=== PATIENT | male | born 1935 | race Caucasian/White ===

== ENCOUNTER 2022-11-07 09:00 | Emergency (ER) | payer OTHER ==
--- OUTSIDE RECORDS SUMMARY | 2022-11-07 09:07 | XMS REPORT | Continuity of Care Document ---
:1935 Author Organization [facility] Address [address] [place] [address] [place] [id number] Care Team Providers Name Role Phone Amanda Roblero APRN Primary Care Physician JOE TABARES Attending Clinician Unavailable KORY AGUILERA Attending Clinician Unavailable ARIANNA MESA Attending Clinician Unavailable AMANDA ROBLERO Attending Clinician Unavailable MARCUS VERDUZCO Attending Clinician Unavailable SHAZIA AMAYA Attending Clinician Unavailable Payal Novoa MD Attending Clinician Jamari Aguilar MD Attending Clinician Meghan Luis Attending Clinician [email or web address] Attending Clinician Unavailable Clayton Bliss V Attending Clinician Unavailable Surekha Fam LCSW Attending Clinician Unavailable Katerin Casey RN Attending Clinician Unavailable ERNESTO SAHA Attending Clinician Unavailable Vaishali Pascual LVN Attending Clinician Unavailable Mao Chamorro Attending Clinician [phone] [email or web address] Admitting Clinician Unavailable Adrianna Blissar David Admitting Clinician Unavailable Payers Payer Name Policy Type Policy Number Effective Date Expiration Date S ource GENERIC INTERFACED [id number] 2021 2021 [facility] PLAN 00:00:00 00:00:00 GENERIC MEDICARE [id number] 1996 MANAGED CARE 00:00:00 MEDICARE B: [id number] 1999 KRISTIE HERNANDEZ - 00:00:[address] 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 Continue memantine 10mg BID and donepezil 10mg Every day Discussed the need for consisten cy with the pt Try in the future to keep him with one dtr for a longer period rather than switching every 2 weeks Hallucinat Hallucinat Disease Active Last U T ions, ions, 17 [facility] visual visual 00:00: t & Plan: 00 Formattin g of this note might be different from the original. MRI ordered suspect stroke or LBD Essential Essential Disease Active Last [facility] hypertensi hypertensi 17 [facility] on on 00:00: t & Plan: 00 Formattin g of this note might be different from the original. 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 insulin insulin No longer on medicatio ns Cleared by endocrino delfin Hyperlipid Hyperlipid Disease Active Last U T emia emia 02-10 [facility] 00:00: t & Plan: 00 Formattin g of this note might be different from the original. Lipid panel Disorienta Disorienta Disease Active Last U T tion tion 02-10 [facility] 00:00: t & Plan: 00 Formattin g of this note might be different from the original. Occurred on a camping trip oriented today dtr will try to move him to where she lives He has a tracker they are keeping on his car keys Vitamin D Vitamin D Disease [facility] t & Plan: 00 Formattin g of this note might be different from the original. F/u on low vit D Pt has vit D deficienc y Will replace vit D if low Cardiac Cardiac Disease Active Last [facility] 00:00: t & Plan: 00 Formattin g of this note might be different from the original. 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 atrial atrial 00:00: t & Plan: contractio contractio 00 Formattin n) n) g of this note might be different from the original. Pt had an irregular rhythm EKG ordered and showed PACs Allergies, Adverse Reactions, Alerts Allergy Allergy Status Severity Reaction(s) Onset Inactive Treating Comm ents Source Name Type Date Date Clinician No Known DA Active [facility] Allergie 3-07 Seltzer s 00:00: Region 00 [facility] Social History Social Habit Start Date Stop Date Quantity Comments Source History of Current smoker [facility] tobacco use History [facility] Alcohol Frequency History [facility] Alcohol Std Drinks History [facility] Alcohol Binge Exposure to 2022-07-23 2022-08-02 Not sure [facility] SARS-CoV-2 00:00:00 10:09:00 (event) Cigarette 2022-02-02 2022-02-02 [facility] pack-years 00:00:00 00:00:00 Alcohol intake 2022-02-02 2022-02-02 Current drinker of [facility] 00:00:00 00:00:00 alcohol (finding) Tobacco use and 2022-02-02 2022-02-02 Former smokeless [facility] exposure 00:00:00 00:00:00 tobacco user Tobacco Comment 2022-02-02 2022-02-02 used till his 60s [facility] 00:00:00 00:00:00 Alcohol Comment 2021-02-10 2021-02-10 infrequently [facility] 00:00:00 00:00:00 Sex Ass[birth year] At [birth year] [facility] 00:00:00 00:00:00 Hospital Smoking Status Start Date Stop Date Source Tobacco smoking consumption [facility] unknown Ex-smoker 2022-02-02 00:00:00 2022-02-02 00:00:00 [facility] Medications Ordered Filled Start Stop Current Ordering Indication Dosage Frequency Signature Comments Components Source Medication Medication Date Date Medication? Clinician (SIG) Name Name cyanocobala Yes 1000ug QD Take 1,000 UT min 2-17 mcg by Health (Vitamin 14:07: mouth 1 B-12) 1000 39 (one) time MCG tablet each day. cholecalcif Yes 2000U Take 2,000 UT michael 2-17 Units by Health (Vitamin 14:07: mouth. D-3) 50 MCG 39 (2000 UT) tablet cyanocobala Yes 1000ug QD Take 1,000 UT min 2-17 mcg by Health (Vitamin 14:07: mouth 1 B-12) 1000 39 (one) time MCG tablet each day. cholecalcif Yes 2000U Take 2,000 UT michael 2-17 Units by Health (Vitamin 14:07: mouth. D-3) 50 MCG 39 (2000 UT) tablet cyanocobala 2021-08 Yes 1000ug QD Take 1,000 UT min 2-07 mcg by Health (Vitamin 10:45: mouth 1 B-12) 1000 07 (one) time MCG tablet each day. cholecalcif 2021-08 Yes 2000U Take 2,000 UT michael 2-07 Units by Health (Vitamin 10:45: mouth. D-3) 50 MCG 04 (1999) tablet atropine 2021-08 Yes [id number] Apply UT % 2-07 sublingual Health ophthalmic 00:00: 1-2 drops solution 00 every two -four hours prn. For excess runny nose saliva atropine 2021-08 Yes [id number] Apply UT % 2-07 sublingual Health ophthalmic 00:00: 1-2 drops solution 00 every two -four hours prn. For excess runny nose saliva atropine 2021-08 Yes [id number] Apply UT % 2-07 sublingual Health ophthalmic 00:00: 1-2 drops solution 00 every two -four hours prn. For excess runny nose saliva memantine 2021-08- No [id number] 10mg Q.5D Take 1 U T (Namenda) 10-03 tablet (10 Hea lth 10 MG 00:00: 05:59 mg total) tablet 00 :00 by mouth in the morning and 1 tablet (10 mg total) in the evening. donepezil 2021-08- No [id number] 10mg Take 1 U T (Aricept) 10-03 tablet (10 Hea lth 10 MG 00:00: 05:59 mg total) tablet 00 :00 by mouth 1 (one) time each day in the morning. memantine 2021-08- No [id number] 10mg Q.5D Take 1 U T (Namenda) 10-03 tablet (10 Hea lth 10 MG 00:00: 05:59 mg total) tablet 00 :00 by mouth in the morning and 1 tablet (10 mg total) in the evening. donepezil 2021-08- No [id number] 10mg Take 1 U T (Aricept) 10-03 tablet (10 Hea lth 10 MG 00:00: 05:59 mg total) tablet 00 :00 by mouth 1 (one) time each day in the morning. memantine 2021-08- No [id number] 10mg Q.5D Take 1 U T (Namenda) 10-03 tablet (10 Hea lth 10 MG 00:00: 05:59 mg total) tablet 00 :00 by mouth in the morning and 1 tablet (10 mg total) in the evening. donepezil 2021-08- No [id number] 10mg Take 1 U T (Aricept) 10-03 tablet (10 Hea lth 10 MG 00:00: 05:59 mg total) tablet 00 :00 by mouth 1 (one) time each day in the morning. donepezil 2021-08- No [id number] 10mg Take 1 U T (Aricept) 09-27 tablet (10 Hea lth 10 MG 00:00: 00:00 mg total) tablet 00 :00 by mouth every night. cyanocobala 2021-08 Yes 1000ug QD Take 1,000 UT min 0-21 mcg by Health (Vitamin 15:16: mouth 1 B-12) 1000 20 (one) time MCG tablet each day. cholecalcif 2021-08 Yes 2000U Take 2,000 UT michael 0-21 Units by Health (Vitamin 15:16: mouth. D-3) 50 MCG 20 (2000 UT) tablet donepezil 2022- No [id number] 10mg Take 1 U T (Aricept) 05-04 tablet (10 Hea lth 10 MG 00:00: 04:59 mg total) tablet 00 :00 by mouth every night. gemfibrozil 0 Yes [id number] 600mg Q.5D Take 1 UT (Lopid) 600 7-27 tablet Health MG tablet 00:00: (600 mg 00 total) by mouth in the morning and 1 tablet (600 mg total) in the evening. atorvastati Yes [id number] 10mg QD Take 1 UT n (Lipitor) 7-27 tablet (10 He alth 10 MG 00:00: mg total) tablet 00 by mouth 1 (one) time each day. lisinopril 0 Yes [id number] 20mg Q.5D Take 1 U T 20 MG 7-27 tablet (20 Health tablet 00:00: mg total) 00 by mouth in the morning and 1 tablet (20 mg total) in the evening. gemfibrozil 0 Yes [id number] 600mg Q.5D Take 1 UT (Lopid) 600 7-27 tablet Health MG tablet 00:00: (600 mg 00 total) by mouth in the morning and 1 tablet (600 mg total) in the evening. atorvastati 2022-0 Yes [id number] 10mg QD Take 1 UT n (Lipitor) 7-27 tablet (10 He alth 10 MG 00:00: mg total) tablet 00 by mouth 1 (one) time each day. lisinopril 2022-0 Yes [id number] 20mg Q.5D Take 1 U T 20 MG 7-27 tablet (20 Health tablet 00:00: mg total) 00 by mouth in the morning and 1 tablet (20 mg total) in the evening. gemfibrozil 2022-0 Yes [id number] 600mg Q.5D Take 1 UT (Lopid) 600 7-27 tablet Health MG tablet 00:00: (600 mg 00 total) by mouth in the morning and 1 tablet (600 mg total) in the evening. atorvastati 2022-0 Yes [id number] 10mg QD Take 1 UT n (Lipitor) 7-27 tablet (10 He alth 10 MG 00:00: mg total) tablet 00 by mouth 1 (one) time each day. lisinopril 2022-0 Yes [id number] 20mg Q.5D Take 1 U T 20 MG 7-27 tablet (20 Health tablet 00:00: mg total) 00 by mouth in the morning and 1 tablet (20 mg total) in the evening. gemfibrozil 2022-0 Yes [id number] 600mg Q.5D Take 1 UT (Lopid) 600 7-27 tablet Health MG tablet 00:00: (600 mg 00 total) by mouth in the morning and 1 tablet (600 mg total) in the evening. atorvastati 2022-0 Yes [id number] 10mg QD Take 1 UT n (Lipitor) 7-27 tablet (10 He alth 10 MG 00:00: mg total) tablet 00 by mouth 1 (one) time each day. lisinopril 2022-0 Yes [id number] 20mg Q.5D Take 1 U T 20 MG 7-27 tablet (20 Health tablet 00:00: mg total) 00 by mouth in the morning and 1 tablet (20 mg total) in the evening. cyanocobala 2022-0 Yes 1000ug QD Take 1,000 UT min 6-09 mcg by Health (Vitamin 08:45: mouth 1 B-12) 1000 10 (one) time MCG tablet each day. cholecalcif 2022-0 Yes 2000U Take 2,000 UT michael 6-09 Units by Health (Vitamin 08:45: mouth. D-3) 50 MCG 10 (1999 UT) tablet cyanocobala 2022-0 Yes 1000ug QD Take 1,000 UT min 6-09 mcg by Health (Vitamin 08:45: mouth 1 B-12) 1000 10 (one) time MCG tablet each day. cholecalcif 2022-0 Yes 2000U Take 2,000 UT michael 6-09 Units by Health (Vitamin 08:45: mouth. D-3) 50 MCG 10 (2000 UT) tablet ipratropium 2022-0 Yes [id number] 2{spray Q.[id number] Administ er UT (Atrovent) 5-05 } [id number] 2 sprays Health 0.06 % 00:00: 3D into each nasal spray 00 nostril 3 (three) times a day for 21 days. ipratropium 2022-0 Yes [id number] 2{spray Q.36611995 Administ er UT (Atrovent) 5-05 } [id number] 2 sprays Health 0.06 % 00:00: 3D into each nasal spray 00 nostril 3 (three) times a day for 21 days. ipratropium 2022-0 Yes [id number] 2{spray Q.[id number] Administ er [facility] (Atrovent) 5-05 } [id number] 2 sprays Health 0.06 % 00:00: 3D into each nasal spray 00 nostril 3 (three) times a day for 21 days. ipratropium 2022-0 Yes [id number] 2{spray Q.26070597 Administ er [facility] (Atrovent) 5-05 } [id number] 2 sprays Health 0.06 % 00:00: 3D into each nasal spray 00 nostril 3 (three) times a day for 21 days. ipratropium 2022-0 Yes [id number] 2{spray Q.[id number] Administ er [facility] (Atrovent) 5-05 } [id number] 2 sprays Health 0.06 % 00:00: 3D into each nasal spray 00 nostril 3 (three) times a day for 21 days. ipratropium 2022-0 Yes [id number] 2{spray Q.[id number] Administ er [facility] (Atrovent) 5-05 } [id number] 2 sprays Health 0.06 % 00:00: 3D into each nasal spray 00 nostril 3 (three) times a day for 21 days. ipratropium 2022-0 Yes [id number] 2{spray Q.[id number] Administ er [facility] (Atrovent) 5-05 } [id number] 2 sprays Health 0.06 % 00:00: 3D into each nasal spray 00 nostril 3 (three) times a day for 21 days. ipratropium 2022-0 Yes [id number] 2{spray Q.[id number] Administ er [facility] (Atrovent) 5-05 } [id number] 2 sprays Health 0.06 % 00:00: 3D into each nasal spray 00 nostril 3 (three) times a day for 21 days. azelastine 2022- No [id number] 1{spray Q.5D Administer [facility] (Astelin) 5-05 05-06 } 1 spray Health 0.1 % nasal 00:00: 04:59 into each spray 00 :00 nostril 2 (two) times a day. Use in each nostril as directed azelastine 2022- No [id number] 1{spray Q.5D Administer [facility] (Astelin) 5-05 05-06 } 1 spray Health 0.1 % nasal 00:00: 04:59 into each spray 00 :00 nostril 2 (two) times a day. Use in each nostril as directed azelastine 2022- No [id number] 1{spray Q.5D Administer [facility] (Astelin) 505 05-06 } 1 spray Health 0.1 % nasal 00:00: 04:59 into each spray 00 :00 nostril 2 (two) times a day. Use in each nostril as directed azelastine 2022- No [id number] 1{spray Q.5D Administer [facility] (Astelin) 5-05 05-06 } 1 spray Health 0.1 % nasal 00:00: 04:59 into each spray 00 :00 nostril 2 (two) times a day. Use in each nostril as directed azelastine 2021-2022- No [id number] 1{spray Q.5D Administer [facility] (Astelin) 5-05 05-06 } 1 spray Health 0.1 % nasal 00:00: 04:59 into each spray 00 :00 nostril 2 (two) times a day. Use in each nostril as directed azelastine 2021-2022- No [id number] 1{spray Q.5D Administer [facility] (Astelin) 5-05 05-06 } 1 spray Health 0.1 % nasal 00:00: 04:59 into each spray 00 :00 nostril 2 (two) times a day. Use in each nostril as directed azelastine 2021-0 2022- No [id number] 1{spray Q.5D Administer [facility] (Astelin) 5-05 05-06 } 1 spray Health 0.1 % nasal 00:00: 04:59 into each spray 00 :00 nostril 2 (two) times a day. Use in each nostril as directed azelastine 2021-2022- No [id number] 1{spray Q.5D Administer [facility] (Astelin) 5-05 05-06 } 1 spray Health 0.1 % nasal 00:00: 04:59 into each spray 00 :00 nostril 2 (two) times a day. Use in each nostril as directed azelastine 2021-2022- No [id number] 1{spray Q.5D Administer [facility] (Astelin) 5-05 05-06 } 1 spray Health 0.1 % nasal 00:00: 04:59 into each spray 00 :00 nostril 2 (two) times a day. Use in each nostril as directed azelastine 2021-0 2022- No [id number] 1{spray Q.5D Administer [facility] (Astelin) 5-05 05-06 } 1 spray Health 0.1 % nasal 00:00: 04:59 into each spray 00 :00 nostril 2 (two) times a day. Use in each nostril as directed azelastine 2021-0 2022- No [id number] 1{spray Q.5D Administer [facility] (Astelin) 5-05 05-06 } 1 spray Health 0.1 % nasal 00:00: 04:59 into each spray 00 :00 nostril 2 (two) times a day. Use in each nostril as directed ipratropium 2021-0 2021- No [id number] 2{spray Q.[id number] Adminis ter [facility] (Atrovent) 12-29 } [id number] 2 sprays Health 0.06 % 00:00: 04:59 3D into each nasal spray 00 :00 nostril 3 (three) times a day for 21 days. ipratropium 2021-0 2021- No [id number] 2{spray Q.[id number] Adminis ter [facility] (Atrovent) 12-29 } [id number] 2 sprays Health 0.06 % 00:00: 04:59 3D into each nasal spray 00 :00 nostril 3 (three) times a day for 21 days. ipratropium 2021-0 2021- No [id number] 2{spray Q.[id number] Adminis ter [facility] (Atrovent) 12-29 } [id number] 2 sprays Health 0.06 % 00:00: 04:59 3D into each nasal spray 00 :00 nostril 3 (three) times a day for 21 days. azelastine 2021- No [id number] 1{spray Q.5D Administer UT (Astelin) 12-16 } 1 spray Health 0.1 % nasal 00:00: 00:00 into each spray 00 :00 nostril 2 (two) times a day. Use in each nostril as directed cyanocobala 2021-0 Yes 1000ug QD Take 1,000 UT min 4-13 mcg by Health (Vitamin 13:04: mouth 1 B-12) 1000 11 (one) time MCG tablet each day. cholecalcif 2021-0 Yes 2000U Take 2,000 UT michael 4-13 Units by Health (Vitamin 13:04: mouth. D-3) 50 MCG 11 (1999 UT) tablet cyanocobala 2021-0 Yes 1000ug QD Take 1,000 UT min 4-13 mcg by Health (Vitamin 13:04: mouth 1 B-12) 1000 11 (one) time MCG tablet each day. cholecalcif 2022-0 Yes 2000U Take 2,000 UT michael 4-13 Units by Health (Vitamin 13:04: mouth. D-3) 50 MCG 11 (2000 UT) tablet cyanocobala 2022-0 Yes 1000ug QD Take 1,000 UT min 4-13 mcg by Health (Vitamin 13:04: mouth 1 B-12) 1000 11 (one) time MCG tablet each day. cholecalcif 2022-0 Yes 2000U Take 2,000 UT michael 4-13 Units by Health (Vitamin 13:04: mouth. D-3) 50 MCG 11 (2000 UT) tablet cyanocobala 2022-0 Yes 1000ug QD Take 1,000 UT min 4-13 mcg by Health (Vitamin 13:04: mouth 1 B-12) 1000 11 (one) time MCG tablet each day. cholecalcif 2022-0 Yes 2000U Take 2,000 UT michael 4-13 Units by Health (Vitamin 13:04: mouth. D-3) 50 MCG 11 (2000 UT) tablet cyanocobala 2022-0 Yes 1000ug QD Take 1,000 UT min 4-13 mcg by Health (Vitamin 13:04: mouth 1 B-12) 1000 11 (one) time MCG tablet each day. cholecalcif 2022-0 Yes 2000U Take 2,000 UT michael 4-13 Units by Health (Vitamin 13:04: mouth. D-3) 50 MCG 11 (2000 UT) tablet cyanocobala 2-0 Yes 1000ug QD Take 1,000 UT min 4-13 mcg by Health (Vitamin 13:04: mouth 1 B-12) 1000 11 (one) time MCG tablet each day. cholecalcif 2022-0 Yes 2000U Take 2,000 UT michael 4-13 Units by Health (Vitamin 13:04: mouth. D-3) 50 MCG 11 (2000 UT) tablet cyanocobala 2022-0 Yes 1000ug QD Take 1,000 UT min 4-13 mcg by Health (Vitamin 13:04: mouth 1 B-12) 1000 11 (one) time MCG tablet each day. cholecalcif 2022-0 Yes 2000U Take 2,000 UT michael 4-13 Units by Health (Vitamin 13:04: mouth. D-3) 50 MCG 11 (2000 UT) tablet memantine 2022-0 Yes [id number] 5 mg/day UT (Namenda) 5 4-12 for =1 Health MG tablet 00:00: week; 5 mg 00 twice daily for =1 week; 15 mg/day given 10mg in a.m. and 5mg at bedtime doses for =1 week; then 10 mg twice daily, Normal memantine 2-0 Yes [id number] 5 mg/day UT (Namenda) 5 4-12 for =1 Health MG tablet 00:00: week; 5 mg 00 twice daily for =1 week; 15 mg/day given 10mg in a.m. and 5mg at bedtime doses for =1 week; then 10 mg twice daily, Normal memantine 2-0 Yes [id number] 5 mg/day UT (Namenda) 5 4-12 for =1 Health MG tablet 00:00: week; 5 mg 00 twice daily for =1 week; 15 mg/day given 10mg in a.m. and 5mg at bedtime doses for =1 week; then 10 mg twice daily, Normal memantine 2021-0 Yes [id number] 5 mg/day UT (Namenda) 5 4-12 for =1 Health MG tablet 00:00: week; 5 mg 00 twice daily for =1 week; 15 mg/day given 10mg in a.m. and 5mg at bedtime doses for =1 week; then 10 mg twice daily, Normal memantine 2021-0 Yes [id number] 5 mg/day UT (Namenda) 5 4-12 for =1 Health MG tablet 00:00: week; 5 mg 00 twice daily for =1 week; 15 mg/day given 10mg in a.m. and 5mg at bedtime doses for =1 week; then 10 mg twice daily, Normal memantine 2-0 Yes [id number] 5 mg/day UT (Namenda) 5 4-12 for =1 Health MG tablet 00:00: week; 5 mg 00 twice daily for =1 week; 15 mg/day given 10mg in a.m. and 5mg at bedtime doses for =1 week; then 10 mg twice daily, Normal memantine 2-0 Yes [id number] 5 mg/day UT (Namenda) 5 4-12 for =1 Health MG tablet 00:00: week; 5 mg 00 twice daily for =1 week; 15 mg/day given 10mg in a.m. and 5mg at bedtime doses for =1 week; then 10 mg twice daily, Normal memantine 2021- No [id number] 5 mg/day UT (Namenda) 5 12-06 for =1 Healt h MG tablet 00:00: 00:00 week; 5 mg 00 :00 twice daily for =1 week; 15 mg/day given 10mg in a.m. and 5mg at bedtime doses for =1 week; then 10 mg twice daily, Normal memantine 2022- No [id number] 10mg Q.5D Take 1 U T (Namenda) 11-30 tablet (10 Hea lth 10 MG 00:00: 04:59 mg total) tablet 00 :00 by mouth 2 (two) times a day. memantine 2022- No [id number] 5 mg/day UT (Namenda 11-30 for =1 Health Titration 00:00: 04:59 week; 5 mg Jef) 28 x 5 00 :00 twice MG & 21 x daily for 10 MG =1 week; tablet pack 15 mg/day given in 5 mg and 10 mg doses for =1 week; then 10 mg twice daily memantine 2022- No [id number] 10mg Q.5D Take 1 U T (Namenda) 11-30 tablet (10 Hea lth 10 MG 00:00: 04:59 mg total) tablet 00 :00 by mouth 2 (two) times a day. memantine 2022- No [id number] 5 mg/day UT (Namenda 11-30 for =1 Health Titration 00:00: 04:59 week; 5 mg Jef) 28 x 5 00 :00 twice MG & 21 x daily for 10 MG =1 week; tablet pack 15 mg/day given in 5 mg and 10 mg doses for =1 week; then 10 mg twice daily memantine 2022- No [id number] 10mg Q.5D Take 1 U T (Namenda) 11-30 tablet (10 Hea lth 10 MG 00:00: 04:59 mg total) tablet 00 :00 by mouth 2 (two) times a day. memantine 2022- No [id number] 5 mg/day UT (Namenda 11-30 for =1 Health Titration 00:00: 04:59 week; 5 mg Jef) 28 x 5 00 :00 twice MG & 21 x daily for 10 MG =1 week; tablet pack 15 mg/day given in 5 mg and 10 mg doses for =1 week; then 10 mg twice daily memantine 2022- No [id number] 10mg Q.5D Take 1 U T (Namenda) 11-30 tablet (10 Hea lth 10 MG 00:00: 04:59 mg total) tablet 00 :00 by mouth 2 (two) times a day. memantine 2022- No [id number] 5 mg/day UT (Namenda 11-30 for =1 Health Titration 00:00: 04:59 week; 5 mg Jef) 28 x 5 00 :00 twice MG & 21 x daily for 10 MG =1 week; tablet pack 15 mg/day given in 5 mg and 10 mg doses for =1 week; then 10 mg twice daily memantine 2022- No [id number] 10mg Q.5D Take 1 U T (Namenda) 11-30 tablet (10 Hea lth 10 MG 00:00: 04:59 mg total) tablet 00 :00 by mouth 2 (two) times a day. memantine 2022- No [id number] 5 mg/day UT (Namenda 11-30 for =1 Health Titration 00:00: 04:59 week; 5 mg Jef) 28 x 5 00 :00 twice MG & 21 x daily for 10 MG =1 week; tablet pack 15 mg/day given in 5 mg and 10 mg doses for =1 week; then 10 mg twice daily memantine 2021-2022- No [id number] 10mg Q.5D Take 1 U T (Namenda) 11-30 tablet (10 Hea lth 10 MG 00:00: 04:59 mg total) tablet 00 :00 by mouth 2 (two) times a day. memantine 2022- No [id number] 5 mg/day UT (Namenda 11-30 for =1 Health Titration 00:00: 04:59 week; 5 mg Jef) 28 x 5 00 :00 twice MG & 21 x daily for 10 MG =1 week; tablet pack 15 mg/day given in 5 mg and 10 mg doses for =1 week; then 10 mg twice daily memantine 2022- No [id number] 10mg Q.5D Take 1 U T (Namenda) 11-30 tablet (10 Hea lth 10 MG 00:00: 04:59 mg total) tablet 00 :00 by mouth 2 (two) times a day. memantine 2022- No [id number] 5 mg/day UT (Namenda 11-30 for =1 Health Titration 00:00: 04:59 week; 5 mg Jef) 28 x 5 00 :00 twice MG & 21 x daily for 10 MG =1 week; tablet pack 15 mg/day given in 5 mg and 10 mg doses for =1 week; then 10 mg twice daily memantine 2022- No [id number] 10mg Q.5D Take 1 U T (Namenda) 11-30 tablet (10 Hea lth 10 MG 00:00: 04:59 mg total) tablet 00 :00 by mouth 2 (two) times a day. memantine 2022- No [id number] 10mg Q.5D Take 1 U T (Namenda) 11-30 tablet (10 Hea lth 10 MG 00:00: 04:59 mg total) tablet 00 :00 by mouth 2 (two) times a day. memantine 2022- No [id number] 10mg Q.5D Take 1 U T (Namenda) 11-30 tablet (10 Hea lth 10 MG 00:00: 04:59 mg total) tablet 00 :00 by mouth 2 (two) times a day. memantine 2021- No [id number] 10mg Q.5D Take 1 U T (Namenda) 11-30 tablet (10 Hea lth 10 MG 00:00: 00:00 mg total) tablet 00 :00 by mouth 2 (two) times a day. memantine 2021- No [id number] 5 mg/day UT (Namenda 11-30 for =1 Health Titration 00:00: 00:00 week; 5 mg Jef) 28 x 5 00 :00 twice MG & 21 x daily for 10 MG =1 week; tablet pack 15 mg/day given in 5 mg and 10 mg doses for =1 week; then 10 mg twice daily Azelastine- 2-0 Yes [id number] One spray UT Fluticasone 3-22 each side Hea lth 137-50 00:00: BID MCG/ACT 00 suspension Azelastine- 2021-0 Yes [id number] One spray UT Fluticasone 3-22 each side [facility] 137-50 00:00: BID MCG/ACT 00 suspension Azelastine- 2021-0 Yes [id number] One spray [facility] Fluticasone 3-22 each side [facility] 137-50 00:00: BID MCG/ACT 00 suspension Azelastine- 2021-0 Yes [id number] One spray [facility] Fluticasone 3-22 each side [facility] 137-50 00:00: BID MCG/ACT 00 suspension ipratropium 2021-0 Yes [id number] 2{spray Q.[id number] Administ er [facility] (Atrovent) 3-22 } [id number] 2 sprays Health 0.06 % 00:00: 3D into each nasal spray 00 nostril 3 (three) times a day for 21 days. Azelastine- 2021-0 Yes [id number] One spray [facility] Fluticasone 3-22 each side [facility] 137-50 00:00: BID MCG/ACT 00 suspension ipratropium 2021-0 Yes [id number] 2{spray Q.[id number] Administ er [facility] (Atrovent) 3-22 } [id number] 2 sprays Health 0.06 % 00:00: 3D into each nasal spray 00 nostril 3 (three) times a day for 21 days. Azelastine- 2021-0 Yes [id number] One spray [facility] Fluticasone 3-22 each side [facility] 137-50 00:00: BID MCG/ACT 00 suspension ipratropium 2021-0 2022- No [id number] 2{spray Q.[id number] Adminis ter [facility] (Atrovent) 11-15 05-05 } [id number] 2 sprays [facility] 0.06 % 00:00: 00:00 3D into each nasal spray 00 :00 nostril 3 (three) times a day for 21 days. ipratropium 2021- No [id number] 2{spray Q.[id number] Adminis ter [facility] (Atrovent) 11-15 } [id number] 2 sprays [facility] 0.06 % 00:00: 04:59 3D into each nasal spray 00 :00 nostril 3 (three) times a day for 21 days. ipratropium 2021- No [id number] 2{spray Q.[id number] Adminis ter [facility] (Atrovent) 11-15 } [id number] 2 sprays [facility] 0.06 % 00:00: 04:59 3D into each nasal spray 00 :00 nostril 3 (three) times a day for 21 days. ipratropium 2021- No [id number] 2{spray Q.[id number] Adminis ter [facility] (Atrovent) 11-15 } [id number] 2 sprays [facility] 0.06 % 00:00: 04:59 3D into each nasal spray 00 :00 nostril 3 (three) times a day for 21 days. ipratropium 2021- No [id number] 2{spray Q.[id number] Adminis ter [facility] (Atrovent) 11-15 } [id number] 2 sprays [facility] 0.06 % 00:00: 04:59 3D into each nasal spray 00 :00 nostril 3 (three) times a day for 21 days. Azelastine- 2021- No [id number] One spray [facility] Fluticasone 11-15 each side [facility] 137-50 00:00: 00:00 BID MCG/ACT 00 :00 suspension cyanocobala 2020-08 Yes 1000ug QD Take 1,000 [facility] min 1-19 mcg by [facility] (Vitamin 10:36: mouth 1 B-12) 1000 41 (one) time MCG tablet each day. cholecalcif 2021-1 Yes 2000U Take 2,000 [facility] 1-19 Units by [facility] (Vitamin 10:36: mouth. D-3) 50 MCG 41 (2000 [facility]) tablet cyanocobala 2020-08 Yes 1000ug QD Take 1,000 [facility] min 1-19 mcg by [facility] (Vitamin 10:36: mouth 1 B-12) 1000 41 (one) time MCG tablet each day. cholecalcif 2020-08 Yes 2000U Take 2,000 [facility] 1-19 Units by [facility] (Vitamin 10:36: mouth. D-3) 50 MCG 41 (2000 [facility]) tablet cyanocobala 2020-08 Yes 1000ug QD Take 1,000 [facility] min 1-19 mcg by [facility] (Vitamin 10:36: mouth 1 B-12) 1000 41 (one) time MCG tablet each day. cholecalcif 2020-08 Yes 2000U Take 2,000 [facility] 1-19 Units by [facility] (Vitamin 10:36: mouth. D-3) 50 MCG 41 (2000 [facility]) tablet cyanocobala 2020-08 Yes 1000ug QD Take 1,000 [facility] min 1-19 mcg by [facility] (Vitamin 10:36: mouth 1 B-12) 1000 41 (one) time MCG tablet each day. cholecalcif 2020-08 Yes 1999U Take 2,000 [facility] 1-19 Units by [facility] (Vitamin 10:36: mouth. D-3) 50 MCG 41 (2000 [facility]) tablet cyanocobala 2020-08 Yes 1000ug QD Take 1,000 [facility] min 1-19 mcg by [facility] (Vitamin 10:36: mouth 1 B-12) 1000 41 (one) time MCG tablet each day. cholecalcif 2020-08 Yes 2000U Take 2,000 [facility] 1-19 Units by [facility] (Vitamin 10:36: mouth. D-3) 50 MCG 41 (2000 [facility]) tablet cyanocobala 2020-08 Yes 1000ug QD Take 1,000 [facility] min 1-19 mcg by [facility] (Vitamin 10:36: mouth 1 B-12) 1000 41 (one) time MCG tablet each day. cholecalcif 2020-08 Yes 2000U Take 2,000 [facility] 1-19 Units by [facility] (Vitamin 10:36: mouth. D-3) 50 MCG 41 (2000 [facility]) tablet cyanocobala 2020-08 Yes 1000ug QD Take 1,000 [facility] min 1-19 mcg by [facility] (Vitamin 10:36: mouth 1 B-12) 1000 41 (one) time MCG tablet each day. cholecalcif 2020-08 Yes 2000U Take 2,000 [facility] 1-19 Units by [facility] (Vitamin 10:36: mouth. D-3) 50 MCG 41 (2000 [facility]) tablet cyanocobala 2020-08 Yes 1000ug QD Take 1,000 [facility] min 1-19 mcg by [facility] (Vitamin 10:36: mouth 1 B-12) 1000 41 (one) time MCG tablet each day. cholecalcif 2020-08 Yes 2000U Take 2,000 [facility] 1-19 Units by [facility] (Vitamin 10:36: mouth. D-3) 50 MCG 41 (2000 [facility]) tablet cyanocobala 2020-08 Yes 1000ug QD Take 1,000 [facility] min 1-19 mcg by [facility] (Vitamin 10:36: mouth 1 B-12) 1000 41 (one) time MCG tablet each day. cholecalcif 2020-08 Yes 1999U Take 2,000 [facility] 1-19 Units by [facility] (Vitamin 10:36: mouth. D-3) 50 MCG 41 (2000 UT) tablet cyanocobala 2020-08 Yes 1000ug QD Take 1,000 [facility] min 1-19 mcg by [facility] (Vitamin 10:36: mouth 1 B-12) 1000 41 (one) time MCG tablet each day. cholecalcif 2020-08 Yes 1999U Take 2,000 [facility] 1-19 Units by [facility] (Vitamin 10:36: mouth. D-3) 50 MCG 41 (2000 UT) tablet cyanocobala 2020-08 Yes 1000ug QD Take 1,000 [facility] min 1-19 mcg by [facility] (Vitamin 10:36: mouth 1 B-12) 1000 41 (one) time MCG tablet each day. cholecalcif 2020-08 Yes 2000U Take 2,000 [facility] 1-19 Units by [facility] (Vitamin 10:36: mouth. D-3) 50 MCG 41 (2000 [facility]) tablet cyanocobala Yes 1000ug QD Take 1,000 [facility] min 7-19 mcg by [facility] (Vitamin 09:53: mouth 1 B-12) 1000 56 (one) time MCG tablet each day. cholecalcif Yes 2000U Take 2,000 [facility] 7-19 Units by [facility] (Vitamin 09:53: mouth. D-3) 50 MCG 56 (1999 [facility]) tablet donepezil 2021- No [id number] 10mg Take 1 U [facility] (Aricept) 03-14 07-20 tablet (10 [facility] 10 MG 00:00: 04:59 mg total) tablet 00 :00 by mouth every night. donepezil 2021- No [id number] 10mg Take 1 U T (Aricept) 03-14 07-20 tablet (10 [facility] 10 MG 00:00: 04:59 mg total) tablet 00 :00 by mouth every night. donepezil 2021- No [id number] 10mg Take 1 U [facility] (Aricept) 03-14 07-20 tablet (10 [facility] 10 MG 00:00: 04:59 mg total) tablet 00 :00 by mouth every night. donepezil 2021- No [id number] 10mg Take 1 U [facility] (Aricept) 03-14 07-20 tablet (10 [facility] 10 MG 00:00: 04:59 mg total) tablet 00 :00 by mouth every night. donepezil 2021- No [id number] 10mg Take 1 U [facility] (Aricept) 03-14 07-20 tablet (10 [facility] 10 MG 00:00: 04:59 mg total) tablet 00 :00 by mouth every night. donepezil 2021- No [id number] 10mg Take 1 U [facility] (Aricept) 03-14 07-20 tablet (10 [facility] 10 MG 00:00: 04:59 mg total) tablet 00 :00 by mouth every night. donepezil 2021- No [id number] 10mg Take 1 U T (Aricept) - 07-20 tablet (10 [facility] 10 MG 00:00: 04:59 mg total) tablet 00 :00 by mouth every night. donepezil 2021- No [id number] 10mg Take 1 [facility] (Aricept) 03-14 07-20 tablet (10 [facility] 10 MG 00:00: 04:59 mg total) tablet 00 :00 by mouth every night. donepezil 2021- No [id number] 10mg Take 1 U T (Aricept) 7- 07-20 tablet (10 [facility] 10 MG 00:00: 04:59 mg total) tablet 00 :00 by mouth every night. donepezil 2021- No [id number] 10mg Take 1 [facility] T (Aricept) 7- 07-20 tablet (10 [facility] 10 MG 00:00: 04:59 mg total) tablet 00 :00 by mouth every night. donepezil 2021- No [id number] 10mg Take 1 U T (Aricept) 7- 07-20 tablet (10 [facility] 10 MG 00:00: 04:59 mg total) tablet 00 :00 by mouth every night. donepezil 2021- No [id number] 10mg Take 1 [facility] T (Aricept) 7- 07-20 tablet (10 [facility] 10 MG 00:00: 04:59 mg total) tablet 00 :00 by mouth every night. donepezil 2021- No [id number] 10mg Take 1 [facility] T (Aricept) 7- 07-20 tablet (10 [facility] 10 MG 00:00: 04:59 mg total) tablet 00 :00 by mouth every night. donepezil 2021- No [id number] 10mg Take 1 [facility] T (Aricept) 7- 07-20 tablet (10 [facility] 10 MG 00:00: 04:59 mg total) tablet 00 :00 by mouth every night. donepezil 2021- No [id number] 10mg Take 1 [facility] T (Aricept) 7- 07-20 tablet (10 [facility] 10 MG 00:00: 04:59 mg total) tablet 00 :00 by mouth every night. donepezil 2021- No [id number] 10mg Take 1 [facility] T (Aricept) 7-19 07-20 tablet (10 [facility] 10 MG 00:00: 04:59 mg total) tablet 00 :00 by mouth every night. donepezil 2021- No [id number] 10mg Take 1 [facility] T (Aricept) 7-19 07-20 tablet (10 [facility] 10 MG 00:00: 04:59 mg total) tablet 00 :00 by mouth every night. donepezil 2021-0 2- No [id number] 10mg Take 1 [facility] T (Aricept) 03-14 07-20 tablet (10 [facility] 10 MG 00:00: 04:59 mg total) tablet 00 :00 by mouth every night. donepezil 1-0 2- No [id number] 10mg Take 1 [facility] T (Aricept) 03-14-20 tablet (10 [facility] 10 MG 00:00: 04:59 mg total) tablet 00 :00 by mouth every night. donepezil 2020-0 2- No [id number] 10mg Take 1 [facility] T (Aricept) 03-14-20 tablet (10 [facility] 10 MG 00:00: 04:59 mg total) tablet 00 :00 by mouth every night. glipiZIDE 2021-0 Yes [facility] XL 6-01 [facility] (Glucotrol 00:00: XL) 2.5 MG 00 24 hr tablet lisinopril 2021-0 Yes [facility] 20 MG 6-01 [facility] tablet 00:00: 00 gemfibrozil 2021-0 Yes [facility] (Lopid) 600 6-01 [facility] MG tablet 00:00: 00 glipiZIDE 2021-0 Yes 2.5mg QD Take 2.5 [facility] XL 6-01 mg by [facility] (Glucotrol 00:00: mouth 1 XL) 2.5 MG 00 (one) time 24 hr each day. tablet lisinopril 2021-0 Yes 20mg QD Take 20 mg U T 20 MG 6-01 by mouth 1 Health tablet 00:00: (one) time 00 each day. gemfibrozil 2021-0 Yes 600mg Q.5D Take 600 [facility] T (Lopid) 600 6-01 mg by [facility] MG tablet 00:00: mouth 2 00 (two) times a day. atorvastati 2021-0 Yes 10mg QD Take 10 mg [facility] n (Lipitor) 6-01 by mouth 1 [facility] 10 MG 00:00: (one) time tablet 00 each day. glipiZIDE 2021-0 Yes 2.5mg QD Take 2.5 [facility] XL 6-01 mg by [facility] (Glucotrol 00:00: mouth 1 XL) 2.5 MG 00 (one) time 24 hr each day. tablet lisinopril 2021-0 Yes 20mg QD Take 20 mg U T 20 MG 6-01 by mouth 1 Health tablet 00:00: (one) time 00 each day. gemfibrozil 2021-0 Yes 600mg Q.5D Take 600 [facility] T (Lopid) 600 6-01 mg by [facility] MG tablet 00:00: mouth 2 00 (two) times a day. atorvastati 2021-0 Yes 10mg QD Take 10 mg [facility] n (Lipitor) 6-01 by mouth 1 [facility] 10 MG 00:00: (one) time tablet 00 each day. glipiZIDE 2021-0 Yes 2.5mg QD Take 2.5 [facility] XL 6-01 mg by [facility] (Glucotrol 00:00: mouth 1 XL) 2.5 MG 00 (one) time 24 hr each day. tablet lisinopril 2021-0 Yes 20mg QD Take 20 mg U T 20 MG 6-01 by mouth 1 Health tablet 00:00: (one) time 00 each day. gemfibrozil 2021-0 Yes 600mg Q.5D Take 600 [facility] T (Lopid) 600 6-01 mg by [facility] MG tablet 00:00: mouth 2 00 (two) times a day. atorvastati 2021-0 Yes 10mg QD Take 10 mg [facility] n (Lipitor) 6-01 by mouth 1 [facility] 10 MG 00:00: (one) time tablet 00 each day. glipiZIDE 2021-0 Yes 2.5mg QD Take 2.5 [facility] XL 6-01 mg by [facility] (Glucotrol 00:00: mouth 1 XL) 2.5 MG 00 (one) time 24 hr each day. tablet lisinopril 2021-0 Yes 20mg QD Take 20 mg U T 20 MG 6-01 by mouth 1 Health tablet 00:00: (one) time 00 each day. gemfibrozil 2021-0 Yes 600mg Q.5D Take 600 [facility] T (Lopid) 600 6-01 mg by [facility] MG tablet 00:00: mouth 2 00 (two) times a day. atorvastati 2021-0 Yes 10mg QD Take 10 mg [facility] n (Lipitor) 6-01 by mouth 1 [facility] 10 MG 00:00: (one) time tablet 00 each day. glipiZIDE 2021-0 Yes 2.5mg QD Take 2.5 [facility] XL 6-01 mg by [facility] (Glucotrol 00:00: mouth 1 XL) 2.5 MG 00 (one) time 24 hr each day. tablet lisinopril 2021-0 Yes 20mg QD Take 20 mg U T 20 MG 6-01 by mouth 1 Health tablet 00:00: (one) time 00 each day. gemfibrozil 2021-0 Yes 600mg Q.5D Take 600 [facility] T (Lopid) 600 6-01 mg by [facility] MG tablet 00:00: mouth 2 00 (two) times a day. atorvastati 2021-0 Yes 10mg QD Take 10 mg [facility] n (Lipitor) 6-01 by mouth 1 [facility] 10 MG 00:00: (one) time tablet 00 each day. atorvastati 2021-0 Yes [facility] n (Lipitor) 6-01 [facility] 10 MG 00:00: tablet 00 glipiZIDE 2021-0 Yes 2.5mg QD Take 2.5 [facility] XL 6-01 mg by [facility] (Glucotrol 00:00: mouth 1 XL) 2.5 MG 00 (one) time 24 hr each day. tablet lisinopril 2021-0 Yes 20mg QD Take 20 mg U T 20 MG 6-01 by mouth 1 Health tablet 00:00: (one) time 00 each day. gemfibrozil 2021-0 Yes 600mg Q.5D Take 600 [facility] T (Lopid) 600 6-01 mg by [facility] MG tablet 00:00: mouth 2 00 (two) times a day. atorvastati 2021-0 Yes 10mg QD Take 10 mg [facility] n (Lipitor) 6-01 by mouth 1 [facility] 10 MG 00:00: (one) time tablet 00 each day. glipiZIDE 2021-0 Yes 2.5mg QD Take 2.5 [facility] XL 6-01 mg by [facility] (Glucotrol 00:00: mouth 1 XL) 2.5 MG 00 (one) time 24 hr each day. tablet lisinopril 2021-0 Yes 20mg QD Take 20 mg U T 20 MG 6-01 by mouth 1 Health tablet 00:00: (one) time 00 each day. gemfibrozil 2021-0 Yes 600mg Q.5D Take 600 [facility] T (Lopid) 600 6-01 mg by [facility] MG tablet 00:00: mouth 2 00 (two) times a day. atorvastati 2021-0 Yes 10mg QD Take 10 mg [facility] n (Lipitor) 6-01 by mouth 1 [facility] 10 MG 00:00: (one) time tablet 00 each day. glipiZIDE 2021-0 Yes 2.5mg QD Take 2.5 [facility] XL 6-01 mg by [facility] (Glucotrol 00:00: mouth 1 XL) 2.5 MG 00 (one) time 24 hr each day. tablet lisinopril 2021-0 Yes 20mg QD Take 20 mg U T 20 MG 6-01 by mouth 1 Health tablet 00:00: (one) time 00 each day. gemfibrozil 2021-0 Yes 600mg Q.5D Take 600 [facility] T (Lopid) 600 6-01 mg by [facility] MG tablet 00:00: mouth 2 00 (two) times a day. atorvastati 2021-0 Yes 10mg QD Take 10 mg [facility] n (Lipitor) 6-01 by mouth 1 [facility] 10 MG 00:00: (one) time tablet 00 each day. glipiZIDE 2021-0 Yes 2.5mg QD Take 2.5 [facility] XL 6-01 mg by [facility] (Glucotrol 00:00: mouth 1 XL) 2.5 MG 00 (one) time 24 hr each day. tablet lisinopril 2021-0 Yes 20mg QD Take 20 mg U T 20 MG 6-01 by mouth 1 [facility] tablet 00:00: (one) time 00 each day. gemfibrozil 2021-0 Yes 600mg Q.5D Take 600 [facility] T (Lopid) 600 6-01 mg by [facility] MG tablet 00:00: mouth 2 00 (two) times a day. atorvastati 2021-0 Yes 10mg QD Take 10 mg [facility] n (Lipitor) 6-01 by mouth 1 [facility] 10 MG 00:00: (one) time tablet 00 each day. glipiZIDE 2021-0 Yes 2.5mg QD Take 2.5 [facility] XL 6-01 mg by [facility] (Glucotrol 00:00: mouth 1 XL) 2.5 MG 00 (one) time 24 hr each day. tablet lisinopril 2021-0 Yes 20mg QD Take 20 mg U T 20 MG 6-01 by mouth 1 Health tablet 00:00: (one) time 00 each day. gemfibrozil 2021-0 Yes 600mg Q.5D Take 600 [facility] T (Lopid) 600 6-01 mg by [facility] MG tablet 00:00: mouth 2 00 (two) times a day. atorvastati 2021-0 Yes 10mg QD Take 10 mg [facility] n (Lipitor) 6-01 by mouth 1 [facility] 10 MG 00:00: (one) time tablet 00 each day. glipiZIDE 2021-0 Yes 2.5mg QD Take 2.5 [facility] XL 6-01 mg by [facility] (Glucotrol 00:00: mouth 1 XL) 2.5 MG 00 (one) time 24 hr each day. tablet lisinopril 2021-0 Yes 20mg QD Take 20 mg [facility] T 20 MG 6-01 by mouth 1 Health tablet 00:00: (one) time 00 each day. gemfibrozil 2021-0 Yes 600mg Q.5D Take 600 [facility] T (Lopid) 600 6-01 mg by [facility] MG tablet 00:00: mouth 2 00 (two) times a day. atorvastati 2021-0 Yes 10mg QD Take 10 mg [facility] n (Lipitor) 6-01 by mouth 1 [facility] 10 MG 00:00: (one) time tablet 00 each day. glipiZIDE 2021-0 Yes 2.5mg QD Take 2.5 [facility] XL 6-01 mg by [facility] (Glucotrol 00:00: mouth 1 XL) 2.5 MG 00 (one) time 24 hr each day. tablet lisinopril 2021-0 Yes 20mg QD Take 20 mg U T 20 MG 6-01 by mouth 1 Health tablet 00:00: (one) time 00 each day. gemfibrozil 2021-0 Yes 600mg Q.5D Take 600 [facility] T (Lopid) 600 6-01 mg by [facility] MG tablet 00:00: mouth 2 00 (two) times a day. atorvastati 2021-0 Yes 10mg QD Take 10 mg [facility] n (Lipitor) 6-01 by mouth 1 [facility] 10 MG 00:00: (one) time tablet 00 each day. glipiZIDE 2021-0 Yes 2.5mg QD Take 2.5 [facility] XL 6-01 mg by [facility] (Glucotrol 00:00: mouth 1 XL) 2.5 MG 00 (one) time 24 hr each day. tablet lisinopril 2021-0 Yes 20mg QD Take 20 mg [facility] T 20 MG 6-01 by mouth 1 [facility] tablet 00:00: (one) time 00 each day. lisinopril 2021-0 Yes 20mg QD Take 20 mg [facility] T 20 MG 6-01 by mouth 1 Health tablet 00:00: (one) time 00 each day. gemfibrozil 2021-0 Yes 600mg Q.5D Take 600 [facility] T (Lopid) 600 6-01 mg by [facility] MG tablet 00:00: mouth 2 00 (two) times a day. atorvastati 2021-0 Yes 10mg QD Take 10 mg [facility] n (Lipitor) 6-01 by mouth 1 [facility] 10 MG 00:00: (one) time tablet 00 each day. glipiZIDE 2021-0 Yes 2.5mg QD Take 2.5 [facility] XL 6-01 mg by [facility] (Glucotrol 00:00: mouth 1 XL) 2.5 MG 00 (one) time 24 hr each day. tablet lisinopril 2021-0 Yes 20mg QD Take 20 mg [facility] T 20 MG 6-01 by mouth 1 Health tablet 00:00: (one) time 00 each day. gemfibrozil 2021-0 Yes 600mg Q.5D Take 600 [facility] T (Lopid) 600 6-01 mg by [facility] MG tablet 00:00: mouth 2 00 (two) times a day. atorvastati 2021-0 Yes 10mg QD Take 10 mg [facility] n (Lipitor) 6-01 by mouth 1 [facility] 10 MG 00:00: (one) time tablet 00 each day. glipiZIDE 2021-0 Yes 2.5mg QD Take 2.5 [facility] XL 6-01 mg by [facility] (Glucotrol 00:00: mouth 1 XL) 2.5 MG 00 (one) time 24 hr each day. tablet lisinopril 2021-0 Yes 20mg QD Take 20 mg [facility] T 20 MG 6-01 by mouth 1 Health tablet 00:00: (one) time 00 each day. gemfibrozil 2021-0 Yes 600mg Q.5D Take 600 [facility] T (Lopid) 600 6-01 mg by [facility] MG tablet 00:00: mouth 2 00 (two) times a day. atorvastati 2021-0 Yes 10mg QD Take 10 mg [facility] n (Lipitor) 6-01 by mouth 1 [facility] 10 MG 00:00: (one) time tablet 00 each day. glipiZIDE 2021-0 Yes 2.5mg QD Take 2.5 [facility] XL 6-01 mg by [facility] (Glucotrol 00:00: mouth 1 XL) 2.5 MG 00 (one) time 24 hr each day. tablet lisinopril 2021-0 Yes 20mg QD Take 20 mg [facility] T 20 MG 6-01 by mouth 1 Health tablet 00:00: (one) time 00 each day. gemfibrozil 2021-0 Yes 600mg Q.5D Take 600 [facility] T (Lopid) 600 6-01 mg by [facility] MG tablet 00:00: mouth 2 00 (two) times a day. atorvastati 2021-0 Yes 10mg QD Take 10 mg [facility] n (Lipitor) 6-01 by mouth 1 [facility] 10 MG 00:00: (one) time tablet 00 each day. glipiZIDE 2021-0 Yes 2.5mg QD Take 2.5 [facility] XL 6-01 mg by [facility] (Glucotrol 00:00: mouth 1 XL) 2.5 MG 00 (one) time 24 hr each day. tablet lisinopril 2021-0 Yes 20mg QD Take 20 mg [facility] T 20 MG 6-01 by mouth 1 [facility] tablet 00:00: (one) time 00 each day. gemfibrozil 2021-0 Yes 600mg Q.5D Take 600 [facility] (Lopid) 600 6-01 mg by [facility] MG tablet 00:00: mouth 2 00 (two) times a day. atorvastati 2021-0 Yes 10mg QD Take 10 mg [facility] n (Lipitor) 6-01 by mouth 1 [facility] 10 MG 00:00: (one) time tablet 00 each day. glipiZIDE 2021-0 Yes 2.5mg QD Take 2.5 [facility] XL 6-01 mg by [facility] (Glucotrol 00:00: mouth 1 XL) 2.5 MG 00 (one) time 24 hr each day. tablet lisinopril 2021-0 Yes 20mg QD Take 20 mg [facility] T 20 MG 6-01 by mouth 1 Health tablet 00:00: (one) time 00 each day. gemfibrozil 2021-0 Yes 600mg Q.5D Take 600 [facility] T (Lopid) 600 6-01 mg by [facility] MG tablet 00:00: mouth 2 00 (two) times a day. atorvastati 2021-0 Yes 10mg QD Take 10 mg [facility] n (Lipitor) 6-01 by mouth 1 [facility] 10 MG 00:00: (one) time tablet 00 each day. lisinopril 2021-0 Yes 20mg QD Take 20 mg [facility] T 20 MG 6-01 by mouth 1 Health tablet 00:00: (one) time 00 each day. gemfibrozil 2021-0 Yes 600mg Q.5D Take 600 [facility] T (Lopid) 600 6-01 mg by [facility] MG tablet 00:00: mouth 2 00 (two) times a day. atorvastati 2021-0 Yes 10mg QD Take 10 mg [facility] n (Lipitor) 6-01 by mouth 1 [facility] 10 MG 00:00: (one) time tablet 00 each day. gemfibrozil 2021-0 Yes 600mg Q.5D Take 600 [facility] T (Lopid) 600 6-01 mg by Health MG tablet 00:00: mouth 2 00 (two) times a day. atorvastati 2021-0 Yes 10mg QD Take 10 mg [facility] n (Lipitor) 6-01 by mouth 1 [facility] 10 MG 00:00: (one) time tablet 00 each day. glipiZIDE 2020-0 2021- No 2.5mg QD Take 2.5 [facility] XL 6-01 06-09 mg by [facility] (Glucotrol 00:00: 00:00 mouth 1 XL) 2.5 MG 00 :00 (one) time 24 hr each day. tablet Immunizations Ordered Immunization Filled Immunization Date Status Commen ts Source Name Name Influenza, injectable, 2022-04-25 Completed [facility] quadrivalent 00:00:00 Influenza, injectable, 2022-04-25 Completed [facility] 00:00:00 Influenza, injectable, 2021-06-03 Completed [facility], 00:00:00 adjuvanted (fluad) Influenza, injectable, 2021-06-03 Completed [facility], 00:00:00 adjuvanted (fluad) Influenza, injectable, 2021-06-03 Completed [facility], 00:00:00 adjuvanted (fluad) Influenza, injectable, 2021-06-03 [facility]pleted [facility], 00:00:00 adjuvanted (fluad) Influenza, injectable, 2021-06-03 [facility]pleted [facility], 00:00:00 adjuvanted (fluad) Influenza, injectable, 2021-06-03 [facility], 00:00:00 adjuvanted (fluad) Covid-19 Moderna 2020-09-25 [facility] SARS-[facility]-2 Vacc[facility] 00:00:00 COVID-19 Moderna 18 & 2020-09-25 [facility] Vaccination 00:00:00 COVID-19 Moderna 18 & 2020-09-25 [facility] Vacc[facility] 00:00:00 COVID-19 Moderna 18 & 2020-09-25 [facility]pleted [facility] Vacc[facility] 00:00:00 COVID-19 Moderna 18 & 2020-09-25 [facility]pleted [facility] Vacc[facility] 00:00:00 COVID-19 Moderna 18 & 2020-09-25 [facility]pleted [facility] Vacc[facility] 00:00:00 COVID-19 Moderna 18 & 2020-09-25 [facility]pleted [facility] Vacc[facility] 00:00:00 COVID-19 Moderna 18 & 2020-09-25 [facility]pleted [facility] Vacc[facility] 00:00:00 COVID-19 Moderna 18 & 2020-09-25 [facility]pleted [facility] Vacc[facility] 00:00:00 COVID-19 Moderna 18 & 2020-09-25 [facility]pleted [facility] Vacc[facility] 00:00:00 COVID-19 Moderna 18 & 2020-09-25 [facility]pleted [facility] Vacc[facility] 00:00:00 COVID-19 Moderna 18 & 2020-09-25 [facility]pleted [facility] Vacc[facility] 00:00:00 COVID-19 Moderna 18 & 2020-09-25 [facility]pleted [facility] Vacc[facility] 00:00:00 COVID-19 Moderna 18 & 2020-09-25 [facility]pleted [facility] Vacc[facility] 00:00:00 COVID-19 Moderna 18 & 2020-09-25 [facility]pleted [facility] Vacc[facility] 00:00:00 COVID-19 Moderna 18 & 2020-09-25 [facility]pleted [facility] Vacc[facility] 00:00:00 COVID-19 Moderna 18 & 2020-09-25 [facility]pleted [facility] Vacc[facility] 00:00:00 COVID-19 Moderna 18 & 2020-09-25 [facility]pleted [facility] Vacc[facility] 00:00:00 COVID-19 Moderna 18 & 2020-09-25 [facility]pleted [facility] Vacc[facility] 00:00:00 COVID-19 Moderna 18 & 2020-09-25 [facility]pleted [facility] Vacc[facility] 00:00:00 COVID-19 Moderna 12 & 2020-09-25 [facility]pleted [facility] Vacc[facility] (RED 00:00:00 CAP) COVID-19 Moderna 12 & 2020-09-25 [facility]pleted [facility] (RED 00:00:00 CAP) COVID-19 Moderna 12 & 2020-09-25 [facility]pleted [facility] Vacc[facility] (RED 00:00:00 CAP) COVID-19 Moderna 12 & 2020-09-25 [facility]pleted [facility] Vacc[facility] (RED 00:00:00 CAP) COVID-19 Moderna & 2020-09-25 [facility]pleted [facility] (RED 00:00:00 CAP) Covid-19 Moderna 2020-08-25 [facility] SARS-CoV-2 Vaccination 00:00:00 COVID-19 Moderna 18 & 2020-08-25 [facility]pleted [facility] Vaccination 00:00:00 COVID-19 Moderna 18 & 2020-08-25 [facility]pleted [facility] Vaccination 00:00:00 COVID-19 Moderna 18 & 2020-08-25 [facility]pleted [facility] Vaccination 00:00:00 COVID-19 Moderna 18 & 2020-08-25 [facility]pleted [facility] Vaccination 00:00:00 COVID-19 Moderna 18 & 2020-08-25 [facility]pleted [facility] Vaccination 00:00:00 COVID-19 Moderna 18 & 2020-08-25 [facility]pleted [facility] Vaccination 00:00:00 COVID-19 Moderna 18 & 2020-08-25 [facility]pleted [facility] Vaccination 00:00:00 COVID-19 Moderna 18 & 2020-08-25 [facility]pleted [facility] Vaccination 00:00:00 COVID-19 Moderna 18 & 2020-08-25 [facility]pleted [facility] Vaccination 00:00:00 COVID-19 Moderna 18 & 2020-08-25 [facility]pleted [facility] Vaccination 00:00:00 COVID-19 Moderna & 2020-08-25 [facility]pleted [facility] Vacc[facility] 00:00:00 COVID-19 Moderna & 2020-08-25 [facility]pleted [facility] Vacc[facility] 00:00:00 COVID-19 Moderna & 2020-08-25 [facility]pleted [facility] Vacc[facility] 00:00:00 COVID-19 Moderna & 2020-08-25 [facility]pleted [facility] Vacc[facility] 00:00:00 COVID-19 Moderna 18 & 2020-08-25 [facility]pleted [facility] Vacc[facility] 00:00:00 COVID-19 Moderna & 2020-08-25 [facility]pleted [facility] Vacc[facility] 00:00:00 COVID-19 Moderna & 2020-08-25 [facility]pleted [facility] Vacc[facility] 00:00:00 COVID-19 Moderna & 2020-08-25 Completed [facility] 00:00:00 COVID-19 Moderna & 2020-08-25 Completed [facility] 00:00:00 COVID-19 Moderna & 2020-08-25 Completed [facility] (RED 00:00:00 CAP) COVID-19 Moderna & 2020-08-25 Completed [facility] (RED 00:00:00 CAP) COVID-19 Moderna & 2020-08-25 Completed [facility] (RED 00:00:00 CAP) COVID-19 Moderna & 2020-08-25 Completed [facility] (RED 00:00:00 CAP) COVID-19 Moderna & 2020-08-25 Completed [facility] (RED 00:00:00 CAP) Vital Signs Vital Name Observation Time Observation Value Comments Source Systolic blood pressure 2022-10-13 20:08:00 152 mm[Hg] [facility] Diastolic blood pressure 2022-10-13 20:08:00 72 mm[Hg] [facility] Heart rate 2022-10-13 20:08:00 67 /min [facility] Body temperature 2022-10-13 20:07:00 36.17 [facility] height 2022-10-13 20:07:00 182.9 cm [facility] weight 2022-10-13 20:07:00 73.483 [facility] BMI 2022-10-13 20:07:00 21.97 kg/m2 [facility] Systolic blood pressure 2022-08-02 17:20:00 170 mm[Hg] [facility] Diastolic blood pressure 2022-08-02 17:20:00 76 mm[Hg] [facility] Heart rate 2022-08-02 17:20:00 61 /min [facility] Oxygen saturation in 2022-08-02 17:20:00 99 /min [facility] Arterial blood by Pulse oximetry Body height 2022-08-02 17:18:00 182.9 [facility] 2022-08-02 17:18:00 75.569 [facility] BMI 2022-08-02 17:18:00 22.60 kg/m2 [facility] Systolic blood pressure 2022-06-16 20:14:00 151 mm[Hg] [facility] Diastolic blood pressure 2022-06-16 20:14:00 77 mm[Hg] [facility] Heart rate 2022-06-16 20:14:00 99 /min [facility] Body temperature 2022-06-16 20:13:00 36.28 Bianca [facility] height 2022-06-16 20:13:00 182.9 cm [facility] weight 2022-06-16 20:13:00 75.978 [facility] BMI 2022-06-16 20:13:00 22.72 kg/m2 [facility] Systolic blood pressure 2022-02-02 13:48:00 147 mm[Hg] [facility] Diastolic blood pressure 2022-02-02 13:48:00 61 mm[Hg] [facility] Heart rate 2022-02-02 13:48:00 68 /min [facility] Body temperature 2022-02-02 13:46:00 36.06 Bianca [facility] height 2022-02-02 13:46:00 182.9 cm [facility] weight 2022-02-02 13:46:00 72.576 [facility] BMI 2022-02-02 13:46:00 21.70 kg/m2 [facility] Systolic blood pressure 2022-01-31 15:36:00 163 mm[Hg] [facility] Diastolic blood pressure 2022-01-31 15:36:00 73 mm[Hg] [facility] Heart rate 2022-01-31 15:36:00 67 /min [facility] Body height 2022-01-31 15:36:00 182.9 cm [facility] Body weight 2022-01-31 15:36:00 72.031 kg [facility] BMI 2022-01-31 15:36:00 21.54 kg/m2 [facility] Oxygen saturation in 2022-01-31 15:36:00 97 /min [facility] Arterial blood by Pulse oximetry Systolic blood pressure 2021-12-07 18:11:00 145 mm[Hg] [facility] Diastolic blood pressure 2021-12-07 18:11:00 74 mm[Hg] [facility] Heart rate 2021-12-07 18:11:00 76 /min [facility] Body height 2021-12-07 18:10:00 182.9 cm [facility] Body weight 2021-12-07 18:10:00 70.943 kg [facility] BMI 2021-12-07 18:10:00 21.21 kg/m2 [facility] Systolic blood pressure 2021-11-29 13:36:00 136 mm[Hg] [facility] Diastolic blood pressure 2021-11-29 13:36:00 90 mm[Hg] [facility] Heart rate 2021-11-29 13:36:00 74 /min [facility] Body weight 2021-11-29 13:36:00 70.126 [facility] BMI 2021-11-29 13:36:00 22.83 kg/m2 [facility] Oxygen saturation in 2021-11-29 13:36:00 98 /min [facility] Arterial blood by Pulse oximetry Procedures Procedure Date / Time Performed Performing Clinician [facility] e COMPREHENSIVE HEARING TEST 2022-01-09 19:41:52 Alex Burnette [facility] POCT GLYCOSYLATED HEMOGLOBIN 2021-12-07 18:14:00 Shazia Amaya [facility] (HGB A1C) POCT GLUCOSE 2021-12-07 18:08:00 Shazia Amaya [facility] MRI BRAIN WO CONTRAST 2021-02-16 14:53:32 Amanda Roblero [facility] Plan of Care Planned Activity Planned Date Details Comments Source Future Scheduled 2022-11-07 [facility]:03 of 2) [code = SHINGLES VACCINES (1 of 2)] Future Scheduled 2022-11-07 65+ P[facility]UMOCOCCAL [facility] Test 09:04:03 VACCINE (1 - PCV) [code = 65+ PNEUMOCOCCAL VACCINE (1 - PCV)] Future Scheduled 2022-11-07 COVID-19 VACCINE (4 - [facility] Test 09:04:03 Booster for Moderna series) [code = COVID-19 VACCINE (4 - Booster for Moderna series)] Future Scheduled 2022-11-07 INFLUENZA VACCINE Method [facility] Hospital Test 09:04:03 [code = INFLUENZA VACCINE] Encounters Start End Encounter Admission Attending Care Care Encounter Source Date/Time Date/Time Type Type Clinicians Facility Department ID 2022-10-11 Outpatient [facility] [id number] [place] 08:49:38 [id number] [facility] 2022-10-02 Outpatient [facility] [id number] UT 10:34:56 [id number] [facility] 2022-09-29 Outpatient [facility] [id number] UT 11:11:58 [id number] [facility] 2022-09-07 Outpatient [facility] [id number] UT 17:21:27 [id number] [facility] 2022-08-03 Outpatient [facility] [id number] UT 12:25:36 [id number] [facility] 2022-07-28 Outpatient [facility] [id number] UT 16:41:54 [id number] [facility] 2022-06-16 Outpatient [facility] [id number] UT 15:17:07 [id number] [facility] 2022-06-15 Outpatient [facility] [id number] UT 11:59:10 [id number] [facility] 2021-03-11 Outpatient JOE TABARES [facility] [id number] UT 11:44:54 Health 2021-03-11 Outpatient GARCÍA-RIVER [facility] ER [id number] UT 11:44:54 KORY Spencer [facility] 2023-08-02 2023-08-02 Outpatient NILA [facility] ER [id number] UT 11:30:00 11:30:00 [facility] ARIANNA 2023-02-09 2023-02-09 Outpatient ROBLERO, [facility] [id number] UT 09:15:00 09:15:00 [facility] 2022-10-13 2022-10-13 Office NAZARIO Roblero 1.2.840.114 [id number] [place] 14:00:00 15:36:44 Visit Amanda BELLO [id number] H ealth STATION 9.2.7.2.686 [facility] [id number] 4 2022-09-07 2022-09-07 Emergency E DAX, MHBL MHBL 7500 MHBL 15:25:00 23:30:00 SAB 2022-08-02 2022-08-02 Office Nila UTP [facility]BS 1.2.840.114 [id number] [place] 10:30:00 11:16:41 Visit Beau, [id number] He alth Arianna 9.2.7.2.686 [id number] 6 2022-06-16 2022-06-16 Office NAZARIO ROBLERO 1.2.840.114 [id number] [place] 15:00:00 15:00:00 Visit AMANDA BELLO [id number] H ealt STATION 9.2.7.2.686 [facility] [id number] 4 2022-06-14 2022-06-14 Outpatient CLARKE, [facility] [id number] UT 10:30:00 10:30:00 Counts include 234 beds at the [facility] 2022-04-24 2022-04-24 Outpatient ROBLERO, [facility] [id number] UT 15:00:00 15:00:00 [facility] 2022-03-07 2022-03-07 Office Zebda, [facility] 1.2.840.114 [id number] UT 08:00:00 08:40:07 Visit Payal [facility] [id number] He alth [address] 1 9.2.7.2.686 [id number] 3 2022-02-02 2022-02-02 Office Osbaldo, UTP 1.2.840.114 [id number] UT 08:45:00 09:15:00 Visit Amanda BELLO 350.1.13.58 [facility] 9.2.7.2.686 [facility] [id number] 4 2022-01-31 2022-01-31 Office Jeff [facility] 1.2.840.114 [id number] [place] 10:30:00 10:35:49 Visit Jamari 350.1.13.58 He alth 9.2.7.2.686 [id number] 6 2022-01-27 2022-01-27 Outpatient ROBLERO, [facility] [id number] UT 11:15:00 11:15:00 [facility] 2022-01-27 2022-01-27 Outpatient ROBLERO, [facility] [id number] UT 11:15:00 11:15:00 [facility] 2022-01-27 2022-01-27 Telephone Jeff NAZARIO [facility] 1.2.840.114 [id number] [place] 00:00:00 00:00:00 Jamari 350.1.13.58 He alth 9.2.7.2.686 [id number] 6 2022-01-09 2022-01-09 Office Sommer [facility] 1.2.840.114 [id number] UT 15:45:00 15:45:00 Visit Payal SE [facility] [id number] [facility] [address] 1 9.2.7.2.686 [id number] 3 2022-01-09 2022-01-09 Procedure Vasile [facility] 1.2.840.114 [id number] UT 14:00:00 14:30:00 Visit Meghan [facility] [id number] He alth [place] 1 9.2.7.2.686 [id number] 1 2021-12-29 2021-12-29 Office Sommer [facility] 1.2.840.114 [id number] UT 10:45:00 11:22:00 Visit Payal SE [facility] [id number] He alth [place] 1 9.2.7.2.686 [id number] 3 2021-12-26 2021-12-26 Outpatient AZBDA, [facility] [id number] UT 13:30:00 13:30:00 PAYAL Health 2021-12-16 2021-12-16 Telephone Sommer [facility] 1.2.054.343 [id number] [place] 00:00:00 00:00:00 Payal SE [facility] 350.1.13.58 He alth [place] 1 9.2.7.2.686 [id number] 3 2021-12-07 2021-12-07 Office Clarke [facility] 6410 1.2.840.114 [id number] [place] 13:00:00 14:19:14 Visit Shazia VELIZ 350.1.13.58 Health 9.2.7.2.686 [id number] 3 2021-11-29 2021-11-29 Office Jeff [facility] 1.2.840.114 [id number] [place] 08:30:00 09:31:06 Visit Jamari 350.1.13.58 He alth 9.2.7.2.686 [id number] 6 2021-11-28 2021-11-28 Telephone Jeff [facility] 1.2.840.114 [id number] [place] 00:00:00 00:00:00 Jamari 350.1.13.58 He alth 9.2.7.2.686 [id number] 6 2021-11-24 2021-11-24 Telephone Jeff [facility] 1.2.840.114 [id number] [place] 00:00:00 00:00:00 Jamari 350.1.13.58 He alth 9.2.7.2.686 [id number] 6 2021-11-15 2021-11-15 Office Azmeghannismael [facility] 1.2.840.114 [id number] [place] 13:30:00 14:22:03 Visit Payal SE [facility] 350.1.13.58 [facility] [address]th [address] 1 9.2.7.2.686 [id number] 3 2021-11-11 2021-11-11 Outpatient GC_PPMD_Pip PRIV PRIV 237 [id number] [facility] 01:48:00 01:48:00 er_P [id number] Medica l 2021-11-10 2021-11-10 Outpatient ZEBDA, [facility] [id number] UT 10:30:00 10:30:00 [facility] 2021-11-09 2021-11-09 Telephone Osbaldo UTP 1.2.767.915 [id number] [place] 00:00:00 00:00:00 Amanda WICKAIRE 350.1.13.58 H ealt MEDICAL 9.2.7.2.686 BUILDING [id number] 1 2021-11-08 2021-11-08 Telephone Roblero, UTP 1.2.237.856 [id number] [place] 00:00:00 00:00:00 Amanda WICKAIRE 350.1.13.58 H ealt MEDICAL 9.2.7.2.686 BUILDING [id number] 1 2021-11-07 2021-11-07 Telephone Osbaldo UTP 1.2.005.396 [id number] [place] 00:00:00 00:00:00 Amanda WICKAIRE 350.1.13.58 H ealt MEDICAL 9.2.7.2.686 BUILDING [id number] 1 2021-10-31 2021-11-02 Inpatient EM Ruthy, [facility] [id number] [facility] 01:57:00 16:34:[address] 2021 2021 Patient Surekha Fam UTP 1.2.840.11 [id number] [place] 00:00:00 00:00:00 Outreach Surekha Fam 350.1.13.58 Health MEDICAL 9.2.7.2.686 BUILDING [id number] 1 2021-08-31 2021-08-31 Telephone Katerin Casey [facility]TP 1.2.840.114 [id number] [place] 00:00:00 00:00:00 Katerin Casey 350.1.13.58 Health MEDICAL 9.2.7.2.686 BUILDING [id number] 1 2021-08-31 2021-08-31 Telephone Osbaldo UTP 1.2.926.262 [id number] [place] 00:00:00 00:00:00 Amanda STACYE 350.1.13.58 H ealt MEDICAL 9.2.7.2.686 BUILDING [id number] 1 2021-08-30 2021-08-30 Emergency [facility] Daylin [id number] [place] 00:00:00 00:00:00 ERNESTO Jenkins [facility] 2021-08-30 2021-08-30 Telephone Vaishali Pascual NAZARIO 1.2.840.11 [id number] [place] 00:00:00 00:00:00 Vaishali Pascual 350.1.13.58 Health MEDICAL 9.2.7.2.686 BUILDING [id number] 1 2021-07-15 2021-07-15 Office NAZARIO Roblero 1.2.840.114 [id number] [place] 10:29:18 11:45:46 Visit Amanda BELLO 350.1.13.58 H ealth MEDICAL 9.2.7.2.686 BUILDING [id number] 1 2021-03-14 2021-03-14 Office NAZARIO Roblero 1.2.840.114 [id number] [place] 09:28:27 10:55:36 Visit Amanda BELLO 350.1.13.58 H ealth MEDICAL 9.2.7.2.686 BUILDING [id number] 1 2021-03-11 2021-03-11 Procedure NAZARIO De La Torre 6400 1.2.840.114 1 [id number] [place] 10:02:13 11:45:[address] 350.1.13.58 Health Erika 9.2.7.2.686 [id number] 4 2021-03-11 2021-03-11 Office Rafael UTP 6400 1.2.840.114 1 [id number] [place] 10:01:44 11:44:56 Visit a, Kory [address] 350.1.13.58 Health 9.2.7.2.686 [id number] 3 2021-02-18 2021-02-18 Telephone NAZARIO Roblero 1.2.093.580 [id number] [place] 00:00:00 00:00:00 Amanda BELLO 350.1.13.58 H ealth MEDICAL 9.2.7.2.686 BUILDING [id number] 1 2021-02-15 2021-02-15 Telephone Osbaldo, UTP 1.2.429.942 [id number] [place] 00:00:00 00:00:00 Amanda BELLO 350.1.13.58 H ealt MEDICAL 9.2.7.2.686 BUILDING [id number] 1 2021-02-10 2021-02-10 Office Osbaldo UTP 1.2.840.114 [id number] [place] 10:27:04 12:28:57 Visit Amanda BELLO 350.1.13.58 H ealth MEDICAL 9.2.7.2.686 BUILDING [id number] 1 2021-02-10 2021-02-10 EXT [facility] OP Roblero, EXT MSRDP 1.2.840.114 1 [id number] [place] 00:00:00 00:00:00 Amanda LOCATION 350.1.13.58 H ealth 9.2.7.2.686 [id number] 0 2021-02-10 2021-02-10 EXT [facility] OP Roblero, EXT MSRDP 1.2.840.114 1 [id number] [place] 00:00:00 00:00:00 Amanda LOCATION 350.1.13.58 H ealth 9.2.7.2.686 [id number] 0 Results Test Description Test Time Test Comments Results Result Comments Source POCT glycosylated hemoglobin (Hb A1C) docked device 18:14:00 Test Item Value Reference Range Interpretation Comme nts Hemoglobin A1C (test code = 4548-4) 5.5 % 4[facility]0-6.0 [facility] [id number] 18:08:00 Test Item Value Reference Range Interpretation Comments Glucose Blood, POC (test code = 121 mg/dL 70-836 3811309) [facility] [id number] 11:39:00 Test Item Value Reference Range Interpretation Comments GLUCOSE BEDSIDE TESTING (test code 105 MG/DL 70-119 N = GLUBED) GLUCOSE BEDSIDE [id number] 08:06:00 Test Item Value Reference Range Interpretation Comments GLUCOSE BEDSIDE TESTING (test code 104 MG/DL 70-119 N = GLUBED) BASIC METABOLIC [id number] 05:56:00 Test Item Value Reference Range Interpretation Comments SODIUM (test code = 140.0 mmol/L 133-144 N NA) POTASSIUM (test 4.0 mmol/L 3.5-5.1 N code = K) CHLORIDE (test code 108 mmol/L 95-105 H = CL) CARBON DIOXIDE 25 mmol/L 21-32 N (test code = CO2) ANION GAP (test 7.0 GAP calc 4.0-15.0 N code = GAP) GLUCOSE (test code 107 MG/DL 70-110 N = GLU) BLOOD UREA NITROGEN 17 MG/DL 7-18 N (test code = BUN) CREATININE (test 0.87 MG/DL 0.55-1.30 N Results may be code = CREAT) depressed if p atient is takingN-Acetylc ystei ne (NAC) and Metamizole (Dipyrone). CALCIUM (test code 8.9 MG/DL 8.5-10.1 N = CA) INDEX HEMOLYSIS 1 NORMAL <10 MG See_Comment [Automat ed message] (test code = Index/DL The system [employer] HEMINDEX) generated this result transmit fabien reference range : 1 NORMAL. The reference range was not used to interpret this result as normal/abnormal . INDEX ICTERIC (test 1 NORMAL <2 MG See_Comment [Auto mated message] code = ICTINDEX) Index/DL The system which generated this result transmit fabien reference range : 1 NORMAL. The reference range was not used to interpret this result as normal/abnormal . INDEX LIPEMIA (test 1 NORMAL <50 MG See_Comment [Aut omated message] code = LIPINDEX) Index/DL The system which generated this result transmit fabien reference range : 1 NORMAL. The reference range was not used to interpret this result as normal/abnormal . CBC W/AUTO [id number] 05:30:00 Test Item Value Reference Range Interpretation Comments WHITE BLOOD CELL (test code = 5.3 K/mm3 4.1-12.1 N WBC) RED BLOOD CELL (test code = RBC) 3.68 M/mm3 3.8-5.5 L HEMOGLOBIN (test code = HGB) 11.8 G/DL 10.6-15.8 N HEMATOCRIT (test code = HCT) 35.3 % 31.8-47.4 N MEAN CELL VOLUME (test code = 95.9 fL 80.1-101.1 N MCV) MEAN CELL HGB (test code = MCH) 32.1 pg 25.3-35.3 N MEAN CELL HGB CONCETRATION (test 33.4 G/DL 32.7-35.1 N code = MCHC) RED CELL DISTRIBUTION WIDTH 13.4 % 12.2-16.4 N (test code = RDW) RED CELL DISTRIBUTION WIDTH 47.7 fL 35.1-43.9 H (test code = RDW-SD) PLATELET COUNT (test code = PLT) 325 K/mm3 155-337 N MEAN PLATELET VOLUME (test code 9.3 fL 7.6-10.4 N = MPV) GRANULOCYTE % (test code = GR%) 37.6 % 37.8-82.6 L IMMATURE GRANULOCYTE % (test 0.2 % 0.0-2.0 N code = IG%) LYMPHOCYTE % (test code = LY%) 45.8 % 14.1-45.4 H MONOCYTE % (test code = MO%) 13.5 % 2.5-11.7 H EOSINOPHIL % (test code = EO%) 2.5 % 0.0-6.2 N BASOPHIL % (test code = BA%) 0.4 % 0.0-2.6 N NUCLEATED RBC % (test code = 0.0 /100WBC% 0.0-1.0 N NRBC%) GRANULOCYTE # (test code = GR#) 1.98 k/mm3 2.0-13.7 L IMMATURE GRANULOCYTE # (test 0.01 K/mm3 0.00-0.03 N code = IG#) LYMPHOCYTE # (test code = LY#) 2.41 K/mm3 0.6-3.8 N MONOCYTE # (test code = MO#) 0.71 K/mm3 0.11-0.59 H EOSINOPHIL # (test code = EO#) 0.13 K/mm3 0.0-0.4 N BASOPHIL # (test code = BA#) 0.02 K/mm3 0.0-0.1 N NUCLEATED RBC # (test code = 0.00 K/mm3 0.00-0.05 N NRBC#) GLUCOSE BEDSIDE [id number] 20:07:00 Test Item Value Reference Range Interpretation Comments GLUCOSE BEDSIDE TESTING (test code 118 MG/DL 70-119 N = GLUBED) GLUCOSE BEDSIDE [id number] 15:25:00 Test Item Value Reference Range Interpretation Comments GLUCOSE BEDSIDE TESTING (test code 143 MG/DL 70-119 H = GLUBED) GLUCOSE BEDSIDE [id number] 12:14:00 Test Item Value Reference Range Interpretation Comments GLUCOSE BEDSIDE TESTING (test code 109 MG/DL 70-119 N = GLUBED) GLUCOSE BEDSIDE [id number] 07:55:00 Test Item Value Reference Range Interpretation Comments GLUCOSE BEDSIDE TESTING (test code 107 MG/DL 70-119 N = GLUBED) BASIC METABOLIC [id number] 06:54:00 Test Item Value Reference Range Interpretation Comments SODIUM (test code = 139.0 mmol/L 133-144 N NA) POTASSIUM (test 4.3 mmol/L 3.5-5.1 N code = K) CHLORIDE (test code 110 mmol/L 95-105 H = CL) CARBON DIOXIDE 24 mmol/L 21-32 N (test code = CO2) ANION GAP (test 5.0 GAP calc 4.0-15.0 N code = GAP) GLUCOSE (test code 108 MG/DL 70-110 N = GLU) BLOOD UREA NITROGEN 18 MG/DL 7-18 N (test code = BUN) CREATININE (test 1.07 MG/DL 0.55-1.30 N Results may be code = CREAT) depressed if p atient is takingN-Acetylc ystei ne (NAC) and Metamizole (Dipyrone). CALCIUM (test code 9.2 MG/DL 8.5-10.1 N = CA) INDEX HEMOLYSIS 1 NORMAL <10 MG See_Comment [Automat ed message] (test code = Index/DL The system adriano h HEMINDEX) generated this result transmit fabien reference range : 1 NORMAL. The reference range was not used to interpret this result as normal/abnormal . INDEX ICTERIC (test 1 NORMAL <2 MG See_Comment [Auto mated message] code = ICTINDEX) Index/DL The system which generated this result transmit fabien reference range : 1 NORMAL. The reference range was not used to interpret this result as normal/abnormal . INDEX LIPEMIA (test 1 NORMAL <50 MG See_Comment [Aut omated message] code = LIPINDEX) Index/DL The system which generated this result transmit fabien reference range : 1 NORMAL. The reference range was not used to interpret this result as normal/abnormal . LIPID PROFILE (CORONARY RISK)2021-11-01 06:54:00 Test Item Value Reference Range Interpretation Comments TRIGLYCERIDES (test 85 MG/DL 0-150 N Results may be code = TRIG) depressed if evans zamora is takingN-Acetylc ystei ne (NAC) and Metamizole (Dipyrone). CHOLESTEROL (test code 110 MG/DL 133-200 L = CHOL) CHOLESTEROL/HDL RATIO 2.61 RATIO See_Comment REFER ENCE RANGE: (test code = CHOLHDL) MALE F EMALE 1/2 AVG RISK 3.43 3.27 AVG RISK 4.97 4.44 2X AVG RISK 9.55 7 .05 3X AVG RISK 23. 39 11.04 [Automate d message] The sy stem which generated this result transmit fabien reference range : 0-. The reference r marielena was not used to interpret this result as normal/abnormal . HDL CHOLESTEROL (test 42 MG/DL 40-59 N Result s maybe code = HDL) depressed if evans zamora is taking Metamizole(Dipy mary) . NON-HDL CHOLESTEROL 68 mg/dL <130 Patients with CHD or (test code = NHDL) CHD risk LDL: <70 mg/dL nonHDL: < 100 mg/dLPatients w ith 2+ risk factors LDL: <130 mg/dL nonH DL: <160 mg/dLPatie nts with 0-1 risk factors LDL: < 160 mg/dL nonHDL: < 190 mg/dL LIPOPROTEIN LDL (test 51 MG/DL 0-129 N code = LDL) LDL/HDL (test code = 1.21 Ratio See_Comment L LDL/HDL RISK LDL/HDL) ASSESSMENT1.47 One-half averag e3.22 Average5.03 Two times average6. 14 [address] rage [Automated mess age] The system [employer] generated this result transmit fabien reference range : 1.48-3.22 Avg. The reference range was not used to interpret this result as normal/abnormal . CBC W/AUTO [id number] 06:36:00 Test Item Value Reference Range Interpretation Comments WHITE BLOOD CELL (test code = 5.4 K/mm3 4.1-12.1 N WBC) RED BLOOD CELL (test code = RBC) 3.59 M/mm3 3.8-5.5 L HEMOGLOBIN (test code = HGB) 11.4 G/DL 10.6-15.8 N HEMATOCRIT (test code = HCT) 34.6 % 31.8-47.4 N MEAN CELL VOLUME (test code = 96.4 fL 80.1-101.1 N MCV) MEAN CELL HGB (test code = MCH) 31.8 pg 25.3-35.3 N MEAN CELL HGB CONCETRATION (test 32.9 G/DL 32.7-35.1 N code = MCHC) RED CELL DISTRIBUTION WIDTH 13.8 % 12.2-16.4 N (test code = RDW) RED CELL DISTRIBUTION WIDTH 48.9 fL 35.1-43.9 H (test code = RDW-SD) PLATELET COUNT (test code = PLT) 327 K/mm3 155-337 N MEAN PLATELET VOLUME (test code 9.4 fL 7.6-10.4 N = MPV) GRANULOCYTE % (test code = GR%) 35.6 % 37.8-82.6 L IMMATURE GRANULOCYTE % (test 0.4 % 0.0-2.0 N code = IG%) LYMPHOCYTE % (test code = LY%) 48.8 % 14.1-45.4 H MONOCYTE % (test code = MO%) 12.8 % 2.5-11.7 H EOSINOPHIL % (test code = EO%) 2.0 % 0.0-6.2 N BASOPHIL % (test code = BA%) 0.4 % 0.0-2.6 N NUCLEATED RBC % (test code = 0.0 /100WBC% 0.0-1.0 N NRBC%) GRANULOCYTE # (test code = GR#) 1.91 k/mm3 2.0-13.7 L IMMATURE GRANULOCYTE # (test 0.02 K/mm3 0.00-0.03 N code = IG#) LYMPHOCYTE # (test code = LY#) 2.62 K/mm3 0.6-3.8 N MONOCYTE # (test code = MO#) 0.69 K/mm3 0.11-0.59 H EOSINOPHIL # (test code = EO#) 0.11 K/mm3 0.0-0.4 N BASOPHIL # (test code = BA#) 0.02 K/mm3 0.0-0.1 N NUCLEATED RBC # (test code = 0.00 K/mm3 0.00-0.05 N NRBC#) GLUCOSE BEDSIDE [id number] 06:16:00 Test Item Value Reference Range Interpretation Comments GLUCOSE BEDSIDE TESTING (test code 103 MG/DL 70-119 N = GLUBED) GLUCOSE BEDSIDE [id number] 04:58:00 Test Item Value Reference Range Interpretation Comments GLUCOSE BEDSIDE TESTING (test code 110 MG/DL 70-119 N = GLUBED) GLUCOSE BEDSIDE [id number] 02:31:00 Test Item Value Reference Range Interpretation Comments GLUCOSE BEDSIDE TESTING (test code 111 MG/DL 70-119 N = GLUBED) GLUCOSE BEDSIDE [id number] 00:41:00 Test Item Value Reference Range Interpretation Comments GLUCOSE BEDSIDE TESTING (test code 106 MG/DL 70-119 N = GLUBED) GLUCOSE BEDSIDE [id number] 22:34:00 Test Item Value Reference Range Interpretation Comments GLUCOSE BEDSIDE TESTING (test code 120 MG/DL 70-119 H = GLUBED) GLUCOSE BEDSIDE [id number] 20:58:00 Test Item Value Reference Range Interpretation Comments GLUCOSE BEDSIDE TESTING (test code 137 MG/DL 70-119 H = GLUBED) GLUCOSE BEDSIDE [id number] 18:50:00 Test Item Value Reference Range Interpretation Comments GLUCOSE BEDSIDE TESTING (test code 103 MG/DL 70-119 N = GLUBED) GLUCOSE BEDSIDE [id number] 16:42:00 Test Item Value Reference Range Interpretation Comments GLUCOSE BEDSIDE TESTING (test code 125 MG/DL 70-119 H = GLUBED) GLUCOSE BEDSIDE [id number] 14:37:00 Test Item Value Reference Range Interpretation Comments GLUCOSE BEDSIDE TESTING (test code 151 MG/DL 70-119 H = GLUBED) GLUCOSE BEDSIDE [id number] 12:29:00 Test Item Value Reference Range Interpretation Comments GLUCOSE BEDSIDE TESTING (test code 111 MG/DL 70-119 N = GLUBED) GLUCOSE BEDSIDE [id number] 10:20:00 Test Item Value Reference Range Interpretation Comments GLUCOSE BEDSIDE TESTING (test code 100 MG/DL 70-119 N = GLUBED) [id number] 10:13:00 Test Item Value Reference Range Interpretation Comments CORTISOL (test code = CORTR) 19.92 mcG/DL 3.44-22.45 N VITAMIN [id number] 07:23:00 Test Item Value Reference Range Interpretation Comments VITAMIN B12 (test code = VITB12) 345 PG/ML 183-986 N THYROID STIMULATING [id number] 07:07:00 Test Item Value Reference Range Interpretation Comments THYROID STIMULATING HORMONE 1.090 mc IU/ML 0.340-4.820 N (test code = TSH) GLYCOSYLATED HEMOGLOBIN (HA1C)2021-10-31 07:03:00 Test Item Value Reference Range Interpretation Comments GLYCOSYLATED HEMOGLOBIN (HA1C) 5.5 % IS-A1C 4.5-5.6 N (test code = GLYHGB) ESTIMATED AVERAGE [id number] 07:03:00 Test Item Value Reference Range Interpretation Comments ESTIMATED AVERAGE GLUCOSE (test 111 MG/DLest code = EAG) GLUCOSE BEDSIDE [id number] 06:26:00 Test Item Value Reference Range Interpretation Comments GLUCOSE BEDSIDE TESTING (test code 100 MG/DL 70-119 N = GLUBED) GLUCOSE BEDSIDE [id number] 04:24:00 Test Item Value Reference Range Interpretation Comments GLUCOSE BEDSIDE TESTING (test code = 92 MG/DL 70-119 N GLUBED) - CT ANGIO [id number] 04:01:00 [facility] : 1935 Sex: M PatientName: EDNA PEREZ Unit No: [id number] EXAMS: CPT CODE: [id number] CT ANGIO HEAD [address]802 EXAM: - CT ANGIO NECK, - CT ANGIO HEAD LOCATION: H57 HISTORY: creat 1 left nasolabial flattening TECHNIQUE: CTA head: Axial CT images were obtained from the skull base to the vertex after intravenous contrast utilizing CTA protocol. Coronal and sagittal maximum intensity projection images are provided. CTA neck: Axial CT images were obtained from the aortic arch to the skull base after intravenous contrast utilizing CTA protocol. Coronal and sagittal maximum intensity projection images are provided. This exam was performed according to our departmental dose-optimization program, which includes automated exposure control, adjustment of the mA and/or kV according to patient size and/or use of iterative reconstruction technique COMPARISON: None available time of interpretation. FINDINGS: For the purposes of this dictation, hemodynamically significant stenosis is characterized as greater than 50%. CTA head: The petrous, cavernous, and clinoid internal carotid arteries do not demonstrate hemodynamically significant stenoses. The anterior and middle cerebral arteries do not demonstrate hemodynamically significant stenoses. York of both vertebral arteries into the basilar. Basilar artery and posterior cerebral arteries are do not demonstrate hemodynamically significant stenoses. No aneurysm is seen. Thedural venous sinuses are patent. CTA neck: The aortic arch is excluded from the field of view. The bilateral common carotid arteries and bulbs are without hemodynamically significant stenosis. The internal carotid arteries do not demonstrate hemodynamically significant stenosis. [facility] NAME: EDNA PEREZ [facility] PHYS: TERRANCE. Jenny Monet MD [address] [place] [address] : 1935 AGE: 86 SEX: [place] [address] LOC: NathanERCCU 20 PHONE #: [phone] EXAM DATE: 10/31/2021 STATUS: ADM IN FAX #: [phone] RAD #: D/C DT PAGE 1 Signed Report (CONTINUED) Elva ent Name: EDNA PEREZ Unit No: [id number] EXAMS: CPT CODE: [id number] CT ANGIO HEAD 29732 (Continued) No pseudoaneurysm or dissection. The vertebral arteries are codominant. No incidental soft tissuefindings. Multilevel degenerative changes of the visualized spine. IMPRESSION: 1. No hemodynamicallysignificant stenoses of the extracranial carotid or vertebral arteries. 2. No intracranial large vessel occlusion or aneurysm. at 0401 Reported and signed by: Talha Kaminski MD CC: Jenny Monet MD Dictated Date/Time: 10/31/2021 (0401) Technologist: JESSICA OLSEN CTDI: DLP: Trnscrpt: 10/31/2021 (0401) [email or web address] JENNIE Rose NAME: EDNA PEREZ [facility] PHYS: Jenny Abrams MD [address] [place] [address] : 1935 AGE:86 SEX: Karan [place] [address] LOC: B.ERCCU 20 PHONE #: [phone] EXAM DATE: 10/31/2021 STATUS: ADM IN FAX #: [phone] RAD #: D/C DT PAGE 2 Signed Report Patient Name: EDNA PEREZ Unit No: [id number] EXAMS: CPT CODE: [id number] CT ANGIO HEAD 92857 (Continued) Orig Print D/T: S: 10/31/2021 (040) ABEL Seltzer NAME: EDNA PEREZ [facility] PHYS: Jenny Abrams MD [address] [place] [address] : 1935 AGE: 86 SEX: Karan [place] [address] LOC: B.ERCCU 20 PHONE #: [phone] EXAM DATE: 10/31/2021 STATUS: ADM IN FAX #: [phone] RAD #: D/C DT PAGE 3 Signed Report- CT ANGIO [id number] 04:01:00 [facility] : 1935 Sex: M PatientName: EDNA PEREZ Unit No: [id number] EXAMS: CPT CODE: [id number] CT ANGIO NECK 78368 EXAM: - CT ANGIO NECK, - CT ANGIO HEAD LOCATION: H57 HISTORY: creat 1 left nasolabial flattening TECHNIQUE: CTA head: Axial CT images were obtained from the skull base to the vertex after intravenous contrast utilizing CTA protocol. Coronal and sagittal maximum intensity projection images are provided. CTA neck: Axial CT images were obtained from the aortic arch to the skull base after intravenous contrast utilizing CTA protocol. Coronal and sagittal maximum intensity projection images are provided. This exam was performed according to our departmental dose-optimization program, which includes automated exposure control, adjustment of the mA and/or kV according to patient size and/or use of iterative reconstruction technique COMPARISON: None available time of interpretation. FINDINGS: For the purposes of this dictation, hemodynamically significant stenosis is characterized as greater than 50%. CTA head: The petrous, cavernous, and clinoid internal carotid arteries do not demonstrate hemodynamically significant stenoses. The anterior and middle cerebral arteries do not demonstrate hemodynamically significant stenoses. York of both vertebral arteries into the basilar. Basilar artery and posterior cerebral arteries are do not demonstrate hemodynamically significant stenoses. No aneurysm is seen. The dural venous sinuses are patent. CTA neck: The aortic arch is excluded from the field of view. The bilateral common carotid arteries and bulbs are without hemodynamically significant stenosis. The internal carotid arteries do not demonstrate hemodynamically significant stenosis. [facility] NAME: EDNA PEREZ MED[facility] IMAG[facility] PHYS: SHERON Jenny Monet MD [address] [place] [address] BLVD : 5AGE: 86 SEX: Karan [place] [address] LOC: B.ERCCU 20 PHONE #: [phone] EXAMDATE: 10/31/2021 STATUS: ADM IN FAX #: [phone] RAD #: D/C DT PAGE 1 Signed Report (CONTINUED) Evans tient Name: EDNA PEREZ Unit No: [id number] EXAMS: CPT CODE: [id number] CT ANGIO NECK 70123 (Continued) No pseudoaneurysm or dissection. The vertebral arteries are codominant. No incidental soft tissue findings. Multilevel degenerative changes of the visualized spine. IMPRESSION: 1. No hemodynamically significant stenoses of the extracranial carotid or vertebral arteries. 2. No intracranial large vessel occlusion or aneurysm. at 0401 Reported and signed by: Talha Kaminski MD CC: Jenny Monet MD Dictated Date/Time: 10/31/2021 (0401) Technologist: JESSICA OLSEN CTDI: DLP: Trnscrpt: 10/31/2021 (0401) [email or web address] JENNIE Rose [facility] PH[facility]: Jenny Abrams MD [address] [place] [address] : 1935GE: 86 SEX: [place] [address] LOC: B.ERCCU 20 PHONE #: [phone] EXAM DATE: 10/31/2021 STATUS: ADM IN FAX #: [phone] RAD #: D/C DT PAGE 2 Signed Report Patient Name: EDNA PEREZ Unit No: [id number] EXAMS: CPT CODE: [id number] CT ANGIO NECK 82554 (Continued) Orig Print D/T: S: 10/31/2021 (0404) JENNIE Rose [facility] PHYS: Jenny Abrams MD [address] [place] [address] : 1935 AGE: 86 SEX: Karan [place] [address] LOC: B.ERCCU 20 PHONE #: [phone] EXAM DATE: 10/31/2021 STATUS: ADM IN FAX #: [phone] RAD #: D/C DT PAGE 3 Signed ReportTROP-I HIGH SENSITIVITY 2021-10-31 02:06:00 Test Item Value Reference Range Interpretation Comments TROP-I HIGH 65 ng/L 0-45 H SENSITIVITY (test code = TROPIHS) CAUTIO N: Units of the current test me thodology (ng/L) differfr om the prior test methodolog y (ng/mL) by a factor of 1000. 99th Percentile Upper Reference Limit (URL): Females: 54 ng/LMales: 78 n g/L In order to distinguish acute elevations of h igh sensitivitytrop onin from other clinical conditions, the FourthUnive rsal Definition of M yocardial Infarction stre ssesclinical assessment and the demonstration o f a rise and/orfall in s erial troponin result s above the URL. Results fr om different methodologies s hould not be comparedto one another as quantitative re sults and URLs may vary b ymethod. BASIC METABOLIC [id number] 02:06:00 Test Item Value Reference Range Interpretation Comments SODIUM (test code = 141.0 mmol/L 133-144 N NA) POTASSIUM (test 3.8 mmol/L 3.5-5.1 N code = K) CHLORIDE (test code 115 mmol/L 95-105 H = CL) CARBON DIOXIDE 20 mmol/L 21-32 L (test code = CO2) ANION GAP (test 6.0 GAP calc 4.0-15.0 N code = GAP) GLUCOSE (test code 83 MG/DL 70-110 N = GLU) BLOOD UREA NITROGEN 14 MG/DL 7-18 N (test code = BUN) CREATININE (test 1.14 MG/DL 0.55-1.30 N Results may be code = CREAT) depressed if p atient is takingN-Acetylc ystei ne (NAC) and Metamizole (Dipyrone). CALCIUM (test code 8.2 MG/DL 8.5-10.1 L = CA) INDEX HEMOLYSIS 1 NORMAL <10 MG See_Comment [Automat ed message] (test code = Index/DL The system whic h HEMINDEX) generated this result transmit fabien reference range : 1 NORMAL. The reference range was not used to interpret this result as normal/abnormal . INDEX ICTERIC (test 1 NORMAL <2 MG See_Comment [Auto mated message] code = ICTINDEX) Index/DL The system which generated this result transmit fabien reference range : 1 NORMAL. The reference range was not used to interpret this result as normal/abnormal . INDEX LIPEMIA (test 1 NORMAL <50 MG See_Comment [Aut omated message] code = LIPINDEX) Index/DL The system which generated this result transmit fabien reference range : 1 NORMAL. The reference range was not used to interpret this result as normal/abnormal . - XR CHEST 1 [id number] 01:53:00 [facility] : 1935 Sex: M FAX: Jenny Mcclain MD [phone] [place]: St: REG Patient Name: EDNA PEREZ Unit No: [id number] EXAMS: CPT CODE: [id number] XRCHEST 1 V 91540 Exam: AP chest Location: H 12 History: Chest pain Comparison: None. Findings: The lungs are clear. No infiltrate or effusion is seen. The pulmonary vasculature is normal. The heart size is enlarged. Atherosclerosis involves the aorta. The mediastinal silhouette is unremarkable. The bony thorax is intact with degenerative changes noted. Impression: No acute disease. at 0153 Reported and signed by: Westley Youssef MD CC: Jenny Monet MD Dictated Date/Time: 10/31/2021 (015)Technologist: JESUSITA EPPS Transcribed Date/Time: 10/31/2021 (015) By: Darell Orig Print D/T: S: 10/31/2021 (0157) JENNIE GarciaME: ANA[address] [place]: [place] [address] :1935 AGE: 86 SEX: M LOC: Brenda.ERS PHONE #: [phone] EXAM DATE: 10/31/2021 STATUS: REG ER FAX #: [phone] RAD NO: DC Dt: PAGE 1 Signed ReportCBC W/O [id number] 01:42:00 Test Item Value Reference Range Interpretation Comments WHITE BLOOD CELL (test code = WBC) 6.6 K/mm3 4.1-12.1 N RED BLOOD CELL (test code = RBC) 3.38 M/mm3 3.8-5.5 L HEMOGLOBIN (test code = HGB) 10.7 G/DL 10.6-15.8 N HEMATOCRIT (test code = HCT) 32.3 % 31.8-47.4 N MEAN CELL VOLUME (test code = MCV) 95.6 fL 80.1-101.1 N MEAN CELL HGB (test code = MCH) 31.7 pg 25.3-35.3 N MEAN CELL HGB CONCETRATION (test 33.1 G/DL 32.7-35.1 N code = MCHC) RED CELL DISTRIBUTION WIDTH (test 13.9 % 12.2-16.4 N code = RDW) PLATELET COUNT (test code = PLT) 283 K/mm3 155-337 N MEAN PLATELET VOLUME (test code = 9.0 fL 7.6-10.4 N MPV) GLUCOSE BEDSIDE [id number] 01:12:00 Test Item Value Reference Range Interpretation Comments GLUCOSE BEDSIDE TESTING (test code = 99 MG/DL 70-119 N GLUBED)
[2022-11-07 09:21] LABS: Absolute Lymphocytes (CBC) 1.5 K/uL (0.7-4.9); Hematocrit 37.3 % (39.6-49.0); Lymphocytes % 16.5 % (15.3-44.8); MCV 95.6 fL (80-100); RBC Red Blood Cell Count 3.91 M/uL (4.33-5.43)
[2022-11-07 09:26] LABS: Protime INR 1.03
--- NOTE | 2022-11-07 09:36 | RAD REPORT ---
EXAM DESCRIPTION: CT - Head Brain Wo Cont - 11/07/2022 9:19 am CLINICAL HISTORY: SYNCOPE Headache, drowsiness COMPARISON: No comparisons TECHNIQUE: All CT scans are performed using dose optimization technique as appropriate and may inclu de automated exposure control or mA/KV adjustment according to patient size. FINDINGS: No intracranial hemorrhage, hydrocephalus or extra-axial fluid collection.Mild generalized brain atrophy.No areas of brain edema or evidence of midline shift. The paranasal sinuses and mastoids are clear. The calvarium is intact. IMPRESSION: No acute intracranial abnormality.
--- NOTE | 2022-11-07 09:51 | RAD REPORT ---
EXAM DESCRIPTION: RAD - Chest Single View - 11/07/2022 9:33 am CLINICAL HISTORY: fall, syncope Chest pain. COMPARISON: No comparisons FINDINGS: Portable technique limits examination quality. The lungs are grossly clear. Trace bilateral pleural fluid. The heart is normal in size. No displaced fractures. IMPRESSION: No acute intrathoracic process suspected.
[2022-11-07 10:26] LABS: Albumin 3.4 g/dL (3.4-5.0); Bilirubin Direct 0.2 mg/dL (0-0.2); Bilirubin Total 0.4 mg/dL (0.2-1.0); Magnesium 2.1 mg/dL (1.6-2.4); Potassium 3.9 mmol/L (3.5-5.1); Protein, Total 6.8 g/dL (6.4-8.2); Troponin High Sensitivity 33.5 pg/mL (<58.9)
[2022-11-07 10:39] LABS: Urine Blood Negative (Negative); Urine Glucose Negative (Negative); Urine Protein Negative (Negative)
--- NOTE | 2022-11-07 11:46 | ER ---
Nurse's Notes [facility] Name: Yuval Cosby Age: 87 yrs Sex: Male : 1935 Arrival Date: 11/07/2022 Time: 09:02 Bed 18 Private MD: Diagnosis: Skin tear right elbow;Unspecified dementia with behavioral disturbance Presentation: 11/07 09:02 Chief complaint: EMS states: FOUND DOWN BY FAMILY, UNKNOWN MECHANISM. PT DENIES TRAUMA. bp Coronavirus screen: At this time, the client does not indicate any symptoms associated with coronavirus-19. Ebola Screen: No symptoms or risks identified at this time. Initial Sepsis Screen: Does the patient meet any 2 criteria? Altered Mental Status. No. Patient's initial sepsis screen is negative. Does the patient have a suspected source of infection? No. Patient's initial sepsis screen is negative. Risk Assessment: Do you want to hurt yourself or someone else? Patient reports no desire to harm self or others. Onset of symptoms is unknown. Care prior to arrival: IV initiated. 20 GA, in the right antecubital area, Glucose check: 142. 09:02 Method Of Arrival: EMS: [facility] bp 09:02 Acuity: EDSON 3 bp Triage Assessment: 09:04 General: Appears in no apparent distress. Behavior is calm, cooperative, CONFUSED. bp Pain: Denies pain. EENT: No deficits noted. Neuro: Level of Consciousness is awake, obeys commands, confused, Oriented to person. Cardiovascular: Rhythm is sinus bradycardia. Respiratory: No deficits noted. GI: No signs and/or symptoms were reported involving the gastrointestinal system. : No signs and/or symptoms were reported regarding the genitourinary system. Derm: Wound noted right elbow Wound is SKIN TEAR. Musculoskeletal: No deficits noted. Historical: - Allergies: 09:04 No Known Allergies; bp - PMHx: 09:04 Hypertensive disorder; Alzheimer's disease; bp - Immunization history:: Adult Immunizations up to date. - Social history:: Smoking status: Patient denies any tobacco usage or history of. Screenin:06 [facility] ED Fall Risk Assessment (Adult) History of falling in the last 3 months, bp including since admission Yes- physiologic fall (2 pts). Abuse screen: Denies threats or abuse. Denies injuries from another. Nutritional screening: No deficits noted. Tuberculosis screening: No symptoms or risk factors identified. Assessment: 09:06 General: SEE TRIAGE NOTE. bp 09:45 Reassessment: PT RETURNED FROM CT. bp Vital Signs: 09:02 Temp 98.7; Pulse Ox 100% ; bp 09:45 BP 140 / 57; Pulse 49; Resp 15; Temp 98; Pulse Ox 97% ; bp 11:36 BP 139 / 87; Pulse 72; Resp 16; Pulse Ox 98% ; bp ED Course: 09:02 Patient arrived in ED. bp 09:02 Jacki Guillen FNP-C is PHCP. kb 09:02 Darrion Johnson MD is Attending Physician. kb 09:04 Triage completed. bp 09:04 Arm band placed on. bp 09:06 Patient has correct armband on for positive identification. Bed in low position. Call bp light in reach. Side rails up X2. 09:06 Maintain EMS IV. Dressing intact. Good blood return noted. Site clean \T\ dry. Gauge \T\ bp site: 20 GA R AC. 09:20 CT Head Brain wo Cont In Process Unspecified. EDMS 09:34 Chest Single View XRAY In Process Unspecified. EDMS 09:49 Poncho Mari, RN is Primary Nurse. bp 11:36 IV discontinued, intact, bleeding controlled, No redness/swelling at site. Pressure bp dressing applied. Wound care: to SKIN TEAR located on right elbow was cleaned with Hibiclens, dressed with cling, Patient tolerated well. Administered Medications: No medications were administered Medication: 09:06 VIS not applicable for this client. bp Outcome: 11:46 Discharge ordered by . julia Signatures: Dispatcher [employer] EDMS Jacki Guillen FNP-C FNP-Poncho Quesada, RN RN bp
--- NOTE | 2022-11-07 11:47 | EDPHYS ---
Physician Documentation [facility] Name: Yuval Cosby Age: 87 yrs Sex: Male : 1935 Arrival Date: 11/07/2022 Time: 09:02 Bed 18 Private MD: ED Physician Darrion Johnson HPI: 11/07 11:41 This 87 yrs old Male presents to ER via EMS with complaints of Near Syncope. kb 11:41 Details of fall: The patient fell from an upright position. Onset: The symptoms/episode kb began/occurred last night. Severity of symptoms: At their worst the symptoms were very mild, in the emergency department the symptoms are unchanged. The patient has not experienced similar symptoms in the past. The patient has not recently seen a physician. Patient is a 87-year-old male with a history of dementia that was brought in by EMS for possible fall. Patient was found on the floor this morning by his daughter. No obvious trauma. Daughter believes that patient sat himself down and did not fall but thought it best that he be checked out.. Historical: - Allergies: 09:04 No Known Allergies; bp - PMHx: 09:04 Hypertensive disorder; Alzheimer's disease; bp - Immunization history:: Adult Immunizations up to date. - Social history:: Smoking status: Patient denies any tobacco usage or history of. ROS: 11:35 Constitutional: Negative for fever, chills, and weight loss. kb 11:35 All other systems are negative. Exam: 11:35 Constitutional: This is a well developed, well nourished patient who is awake, alert, kb and in no acute distress. Head/Face: Normocephalic, atraumatic. ENT: Moist Mucous membranes Cardiovascular: Regular rate and rhythm with a normal S1 and S2. No gallops, murmurs, or rubs. No pulse deficits. Respiratory: Respirations even and unlabored. No increased work of breathing. Talking in full sentences Abdomen/GI: Soft, non-tender. No distention MS/ Extremity: Pulses equal, no cyanosis. Neurovascular intact. Full, normal range of motion. 11:35 Skin: injury, skin tear right elbow. 11:35 Neuro: Exam negative for acute changes. Vital Signs: 09:02 Temp 98.7; Pulse Ox 100% ; bp 09:45 BP 140 / 57; Pulse 49; Resp 15; Temp 98; Pulse Ox 97% ; bp 11:36 BP 139 / 87; Pulse 72; Resp 16; Pulse Ox 98% ; bp MDM: 09:02 Patient medically screened. kb 11:35 Differential Diagnosis: fall, syncope, dementia. Data reviewed: vital signs, nurses kb notes. Consideration of Admission/Observation Escalation of care including admission/observation considered. admission considered for declining state due to dementia, but daughter reports pt is acting normally for him including ambulation and speech. . Independent interpretation of the following test(s) in the Emergency Department EKG: See my EKG interpretation above. Historians other than the Patient: [facility]. Daughter/Son: Daughter. Care significantly affected by the following chronic conditions: dementia. Counseling: I had a detailed discussion with the patient and/or guardian regarding: the historical points, exam findings, and any diagnostic results supporting the discharge/admit diagnosis, lab results, radiology results, the need for outpatient follow up, a family practitioner, to return to the emergency department if symptoms worsen or persist or if there are any questions or concerns that arise at home. ED course: Patient is an 87-year-old male with a history of dementia who presents for possible fall. Daughter woke up this morning and found patient on the floor, naked. States she believes patient laid down on the floor because his dementia is progressing but is not positive that he did not fall. EMS reports patient was unable to ambulate on scene so that is why daughter allowed them to bring him in for evaluation. On exam patient has equal strength bilaterally to upper and lower extremities. Oriented to self, which is normal for him. Normal speech. Follows commands. Lungs clear bilaterally, respirations even and unlabored. No tenderness upon palpation. CT, chest x-ray, serum labs and urinalysis are completed and reviewed. No acute findings. Patient ambulating with a gait that is normal for him. Daughter in agreement with outpatient follow-up. Patient stable for discharge.. 11/07 09:03 Order name: CBC with Diff; Complete Time: 09:24 kb 11/07 09:03 Order name: Protime (+inr); Complete Time: :28 kb 11/07 09:03 Order name: Ptt, Activated; Complete Time: :28 kb 11/07 09:03 Order name: CT Head Brain wo Cont; Complete Time: :40 kb 11/07 09:03 Order name: EKG; Complete Time: 09:04 kb 11/07 09:03 Order name: Cardiac monitoring; Complete Time: 09:49 kb 11/07 09:03 Order name: IV Saline Lock; Complete Time: 09:07 kb 11/07 09:03 Order name: Labs collected and sent; Complete Time: 09:49 kb 11/07 09:03 Order name: NPO; Complete Time: 09:07 kb 11/07 09:03 Order name: O2 Per Protocol; Complete Time: 09:07 kb 11/07 09:03 Order name: O2 Sat Monitoring; Complete Time: 09:07 kb 11/07 09:03 Order name: EKG - Nurse/Tech; Complete Time: 09:49 kb 11/07 09:03 Order name: Chest Single View XRAY; Complete Time: 09:52 kb 11/07 09:24 Order name: Labs - recollect needed: recollect green top; Complete Time: 10:31 bd 11/07 09:03 Order name: Basic Metabolic Panel; Complete Time: 10:37 kb 11/07 09:03 Order name: Hepatic Function; Complete Time: 10:37 kb 11/07 09:03 Order name: Magnesium; Complete Time: 10:37 kb 11/07 09:03 Order name: Troponin High Sensitivity; Complete Time: 10:37 kb 11/07 09:03 Order name: Urine Dipstick-Ancillary (obtain specimen); Complete Time: 11:01 kb 11/07 10:39 Order name: Urine Dipstick-Ancillary; Complete Time: 10:46 EDMS 11/07 11:34 Order name: Wound Care; Complete Time: 11:36 kb Administered Medications: No medications were administered Disposition Summary: 11/07/22 11:46 Discharge Ordered Location: Home kb Condition: Stable kb Problem: an ongoing problem kb Diagnosis - Skin tear right elbow kb - Unspecified dementia with behavioral disturbance kb Followup: kb - With: Emergency Department - When: As needed - Reason: Worsening of condition Followup: kb - With: Private Physician - When: 2 - 3 days - Reason: Recheck today's complaints, Continuance of care, Re-evaluation by your physician Discharge Instructions: - Discharge Summary Sheet kb - Lewy Body Dementia kb - Skin Tear, [id number] kb Forms: - Medication Reconciliation Form kb - Thank You Letter kb - Antibiotic Education kb - Prescription Opioid Use kb Signatures: Dispatcher [employer] Jacki Martinez, CARRIER ASSOCIATE-C CARRIER ASSOCIATE-Faustina Barba Brian, RN RN bp
[2022-11-07 12:19] VITALS: BP 139/87; TEMP 98; O2SAT 98
--- NOTE | 2022-11-07 16:48 | EKG ---
Test Date: 2022-11-07 Test Time: 09:35:23 Industrial Psychology Teacher: NAYA MEASUREMENT RESULTS: Intervals: Rate: 54 NH: 156 QRSD: 116 QT: 484 QTc: 458 [place]: P: 110 NH: 156 QRS: 90 T: 75 INTERPRETIVE STATEMENTS: Suspect arm lead reversal, interpretation assumes no reversal Sinus bradycardia Right bundle branch block Abnormal ECG No previous ECG available for comparison Electronically Signed On 11-07-22 16:46:54 CDT by Edmar Valladares
== END 2022-11-07 12:11 | disposition home or self-care (01) ==
LOC: ER 09:00
DX: S51.011A Laceration without foreign body of right elbow, initial encounter (principal); G30.9 Alzheimer's disease, unspecified; F02.80 Dementia in other diseases classified elsewhere, unspecified severity, without behavioral disturbance, psychotic disturbance, mood disturbance, and anxiety; I10 Essential (primary) hypertension
CPT/HCPCS: 36415; 70450; 71045; 80048; 80076; 81003; 83735; 84484; 85025; 85610; 85730; 93005; 99284